=== PATIENT | female | born 1955 | race Caucasian/White ===

== ENCOUNTER 2016-09-19 16:05 | Emergency (ER) | payer OTHER ==
[~2016-09-19] VITALS: Ht 154.9 cm; Wt 90.7 kg
[~2016-09-19 16:05] MED LIST: Aspirin PO; FAMO40TA57 PO; PANT40TA3 PO; PARO30TA45 PO; ST.150CA PO; TRAM-29 PO; TRAM50TA PO; VENTOLIN HFA18 GM IH
[2016-09-19] MEDS ORDERED: PREDNISONE 20 MG TABLET PO ONE (17:15)
[2016-09-19] MEDS ORDERED: IPRATRPIUM/ALBUTEROL 0.5/2.5MG 3 ML NEBU. NEB ONE (17:15)
[2016-09-19 17:55] VITALS: BP 145/70
[2016-09-19] MEDS ORDERED: PROVENTIL HFA6.7 GM IH (18:21)
[2016-09-19] MEDS ORDERED: PRED20TA PO (18:21)
--- NOTE | 2016-09-19 18:22 | PHYS DOC ---
Past Medical History Past Medical History: Anxiety, Asthma, Depression, Gallstones, Other Additional Past Medical Histor: Hypoglycemia, sciatic nerve pain, miscarriage x3 Past Surgical History: Hysterectomy, Tonsillectomy, Other Additional Past Surgical Histo: 3 D&C Alcohol Use: None Drug Use: None Adult General Chief Complaint Chief Complaint: ASTHMA HPI HPI 61-year-old female with history of asthma presents with cough and wheezing all day today. She states the wheezing came out of nowhere. She did take a couple of puffs off her inhaler at home which seemed to help. She denies any fever chills sweats or body ache. She's not had any runny nose or nasal congestion. She denies any hemoptysis.] Review of Systems Review of Systems Constitutional: Denies fever or chills [] Eyes: Denies change in visual acuity, redness, or eye pain [] HENT: Denies nasal congestion or sore throat [] Respiratory: Per history of present illness [] Cardiovascular: No additional information not addressed in HPI [] GI: Denies abdominal pain, nausea, vomiting, bloody stools or diarrhea [] : Denies dysuria or hematuria [] Musculoskeletal: Denies back pain or joint pain [] Integument: Denies rash or skin lesions [] Neurologic: Denies headache, focal weakness or sensory changes [] Endocrine: Denies polyuria or polydipsia [] Current Medications Current Medications Current Medications Medications (Trade) Dose Ordered Sig/Russel Start Time Stop Time Status Last Admin Dose Admin Albuterol/ Ipratropium (Duoneb) 3 ml 1X ONCE 09/19/16 17:15 09/19/16 17:16 DC 09/19/16 17:39 3 ML Prednisone (Prednisone) 40 mg 1X ONCE 09/19/16 17:15 09/19/16 17:16 DC 09/19/16 17:15 40 MG Allergies Allergies Allergies Coded Allergies Type Severity Reaction Last Updated Verified Penicillins Allergy Intermediate Hives 01/26/16 Yes Physical Exam Physical Exam Constitutional: Well developed, well nourished, no acute distress, non-toxic appearance. [] HENT: Normocephalic, atraumatic, bilateral external ears normal, oropharynx moist, no oral exudates, nose normal. [] Eyes: PERRLA, EOMI, conjunctiva normal, no discharge. [] Neck: Normal range of motion, no tenderness, supple, no stridor. [] Cardiovascular:Heart rate regular rhythm, no murmur [] Lungs & Thorax: Mild apical wheezing no rales [] Abdomen: Bowel sounds normal, soft, no tenderness, no masses, no pulsatile masses. [] Skin: Warm, dry, no erythema, no rash. [] Back: No tenderness, no CVA tenderness. [] Extremities: No tenderness, no cyanosis, no clubbing, ROM intact, no edema. [] Neurologic: Alert and oriented X 3, normal motor function, normal sensory function, no focal deficits noted. [] Psychologic: Affect normal, judgement normal, mood normal. [] Current Patient Data Vital Signs Vital Signs Date Time Temp Pulse Resp B/P Pulse Ox O2 Delivery O2 Flow Rate FiO2 09/19/16 17:38 99 Room Air 09/19/16 16:55 84 20 159/77 09/19/16 16:33 97.8 97.8 EKG EKG [EKG: Normal sinus rhythm rate of [address]-T changes] Radiology/Procedures Radiology/Procedures [] Impressions: Chest x-ray: Negative exam as interpreted by me Course & Med Decision Making Course & Med Decision Making Pertinent Labs and Imaging studies reviewed. (See chart for details) [] Dragon Disclaimer Dragon Disclaimer This electronic medical record was generated, in whole or in part, using a voice recognition dictation system. Departure Departure Impression: Primary Impression: Asthma exacerbation Disposition: HOME, SELF-CARE Condition: IMPROVED Referrals: IGNACIO ELIAS MD (PCP) Patient Instructions: Asthma, Adult Additional Instructions: Thank you for allowing us to participate in your care today. Followup with your primary care physician in 3 days if your symptoms do not improve. Return to the emergency department you have any new or concerning findings. This should be evaluated by the primary care physician and any necessary consulting services for continued management within a few days after discharge. Return to emergency room if you have any new or concerning symptoms including but not limited to fever, chills, nausea, vomiting, intractable pain, any new rashes, chest pain, shortness of air, uncontrolled bleeding, difficulty breathing, and/or vision loss. You may have been prescribed medication that can change in your level of thinking and ability to operate machinery. These medications include hydrocodone and Ativan. Also, Benadryl has been known to do this as well. Be sure to check with your pharmacist and ask if the medications you've prescribed can affect your level of consciousness. I recommend not operating heavy machinery or driving while on medication such as these. Scripts Albuterol Sulfate (Proventil Hfa Inhaler)6.7 Gm Hfa.[id number].ad1 Puff IH PRN Q4HRS PRN asthma #1 INHALER NS Prov:TULIO NEVAREZ DO 09/19/16 Prednisone 20 Mg Tablet2 Tab PO DAILY PRN COUGH #14 TAB Prov:TULIO NEVAREZ DO 09/19/16 TULIO NEVAREZ DO Sep 19, 2016 18:22
--- NOTE | 2016-09-20 06:11 | EKG ---
[facility] [address] [place] [address] Test Date: 2016-09-19 Test Time: 16:48:18 Pat Name: PIPE BARROS Department: Room: Gender: F Acquisition Advisor: : 1955 Requested By: TULIO NEVAREZ Order Number: [id number] Reading MD: Sherice Mcclure Measurements Intervals [employer] Rate: 78 P: 38 NC: 138 QRS: 3 QRSD: 90 T: 29 QT: 384 QTc: 441 Interpretive Statements SINUS RHYTHM LEFT ATRIAL ABNORMALITY RI6.01 Unconfirmed report Compared to ECG 07/18/2015 13:14:00 No significant changes Electronically Signed On 09-21-2016 21:34:49 CDT by Sherice Mcclure
--- NOTE | 2016-09-20 08:20 | RAD ---
Portable chest, 09/19/2016: History: Shortness of breath Comparison is made to a study from 07/17/2015. The heart size and pulmonary vascularity are normal. No pulmonary infiltrates are seen. There is no evidence of pleural fluid. IMPRESSION: No acute cardiopulmonary abnormality is detected.
== END 2016-09-19 18:35 | disposition home or self-care (01) ==
LOC: ER 16:05
DX: J45.901 Unspecified asthma with (acute) exacerbation (principal); Z88.0 Allergy status to penicillin
CPT/HCPCS: 71010; 93005; 94250; 94640; 99284; J7512; J7620

== ENCOUNTER → 2016-10-02 | Day surgery (SDC) | payer OTHER ==
[~2016-10-02] MED LIST changes: +FENTANYL PF 100 MCG/2 ML VIAL. IV PRN; +HYDROMORPHONE 2 MG/ML VIAL. IV PRN; +IV RINGERS,LACTATED 1000ML 1,000 ML IV SCH; +LIDOCAINE 1% 1 ML SYRINGE. ID PRN; +LORA0.5T PO; +MORPHINE SULFATE 2 MG/ML DISP.SYRIN. IV PRN; +ONDANSETRON PF 4 MG/2 ML VIAL. IV PRN; +PRED20TA PO; +PROCHLORPERAZINE 10 MG/2 ML VIAL. IV PRN; +PROPOFOL 40 ML IV ONE; +PROVENTIL HFA6.7 GM IH
--- NOTE | 2016-10-02 09:30 | PDOC1 ---
HISTORY & PHYSICAL H&P Rossy Fernandez 1955 09/13/2016 01:00 PM 07/09 [employer] [facility] PATIENTS COM[facility] [address] [place] [address]. [phone] Patient: Rossy Fernandez Date of : 1955 Date: 09/13/2016 1:00 PM Visit Type: Consult This 61 year old female presents for Abdominal pain, Diarrhea, Dysphagia and Screening colonoscopy. History of Present Illness: 1. Abdominal pain Severity is mild-moderate. Duration is 1 Week. Location is epigastric, midline. There is no radiation. The patient describes it as aching, burning and sharp. Context: no pattern noted. Denies aggravating factors. Denies relieving factors. Associated symptoms include diarrhea. Pertinent negatives include blood in stool, fever and nausea. 2. Diarrhea Onset: 5 days ago. Severity level is: mild-moderate. Stool frequency: 3 to 4 times a day. The describes it as loose and watery. It occurs constantly. She denies aggravating factors. She denies relieving factors. Associated symptoms include abdominal pain and cramping (abdominal). Pertinent negatives include blood in stool, fever, nausea, vomiting and weight loss. 3. Dysphagia The symptoms occur with solids only which cause choking and gagging with food sticking in the mid chest. The symptoms are felt to be related to meals. There is no history of reflux or stroke. The patient denies nausea, vomiting or weight loss. 4. Screening colonoscopy No prior screening. Denies risk factors. Associated symptoms include abdominal pain and diarrhea. Pertinent negatives include change in bowel habits , change in stool caliber, constipation, decreased appetite, melena, nausea, rectal bleeding, vomiting, weight gain and weight loss. Additional information : No family history of colon cancer, No family history of Crohn's/colitis and No NSAID/ASA use. INTAKE COMMENTS: Intake Comments: Nurse Note: the pt is here today with complaints of diarrhea and abd pain after meals. The pt states that she also has some dysphagia at times. The pt has never had a colonoscopy completed. Denies any blood or dark stools. PROBLEM LIST: Problem Description Onset Date Chronic Notes Bilateral low back pain with sciatica, sciatica laterality unspecified 2014 Anxiety 12/10/2015 Groin pain, left 06/15/2015 Dysuria 06/15/2015 Gastroesophageal reflux disease without esophagitis 07/23/2015 PAST MEDICAL/SURGICAL HISTORY (Detailed) Disease/disorder Onset Date Management Date Comments D&C 1986 Hysterectomy 12/2012 Tonsillectomy 1957 Anxiety Asthma 1974 Peptic ulcer disease Medications (Active): Started Medication Directions Instruction Stopped 08/25/2016 Ativan 0.5 mg tablet take 1 tablet by ORAL route 2 times every day as needed 08/16/2016 PAROXETINE 30MG TAB TAKE 1 TABLET BY MOUTH DAILY 08/16/2016 PROTONIX 40MG TAB TAKE 1 TABLET BY MOUTH DAILY 12/13/2015 simvastatin 20 mg tablet take 1 tablet by oral route every day in the evening 12/19/2013 Ventolin HFA 90 mcg/actuation aerosol inhaler inhale 2 puff by inhalation route every 2 hours Allergies: Ingredient Reaction Medication Name Comment PENICILLINS Hives/Skin Rash REVIEW OF SYSTEMS System Neg/Pos Details Constitutional Negative Chills, fever, malaise, weight gain and weight loss. ENMT Negative Sore throat. Eyes Negative Double vision. Respiratory Negative Dyspnea and wheezing. Cardio Negative Chest pain and irregular heartbeat/palpitations. GI Positive Abdominal cramping, Abdominal pain, Diarrhea, See HPI. GI Negative Blood in stool, change in bowel habits, change in stool caliber, constipation, decreased appetite, melena, nausea, see HPI, rectal bleeding and vomiting. Negative Dysuria and hematuria. Endocrine Negative Cold intolerance and heat intolerance. Psych Negative Anxiety. Integumentary Negative Hives and rash. MS Negative Joint pain. Hermelindo/Lymph Negative Easy bleeding and easy bruising. Allergic/Immuno Negative Food allergies. VITAL SIGNS Time BP mm/Hg Pulse /min Resp /min Temp F Ht ft Ht in Ht cm Wt lb Wt kg BMI kg/ m2 BSA m2 O2 Sat% 12:48 PM 120/80 88 98.0 5.0 9.00 175.26 220.40 99.972 32.55 96 Time Measured by 12:48 PM Radha Mandujano PHYSICAL EXAM: Exam Findings Details Constitutional Normal Well developed. Eyes Normal Conjunctiva - Right: Normal, Left: Normal. Sclera - Right: Normal, Left: Normal. Nasopharynx Normal Lips/teeth/gums - Normal. Neck Exam Normal Inspection - Normal. Thyroid gland - Normal. Respiratory Normal Inspection - Normal. Auscultation - Normal. Cardiovascular Normal Regular rate and rhythm. No murmurs, gallops, or rubs. Vascular Normal Pulses - Carotids: Normal, Femoral: Normal, Dorsalis pedis: Normal. Abdomen Normal Inspection - Normal. Anterior palpation - No guarding. No abdominal tenderness. No hepatic enlargement. No splenic enlargement. No hernia. No Ascites. Skin Normal Inspection - Normal. Extremity Normal No edema. Psychiatric Normal Oriented to time, place, person, and situation. Appropriate mood and effect. The patient was checked out at 1:06 PM by Radha Mandujano. Assessment/Plan # Detail Type Description 1. Assessment Pain of upper abdomen (R10.10). Patient Plan schedule EGD at [facility] Plan Orders Further diagnostic evaluations ordered today include(s) EGD to be performed today. 2. Assessment Functional diarrhea (K59.1). Patient Plan Await colonoscopy. 3. Assessment Encounter for screening colonoscopy (Z12.11). Patient Plan schedule colonoscopy at [facility] Plan Orders Further diagnostic evaluations ordered today include(s) Colonoscopy to be performed today. She is to schedule a follow-up visit with Bryce Deleon MD upon completion of work-up 4. Assessment History of calculus of gallbladder (Z87.19). Patient Plan Await EGD and if negative one may have to consider symptomatic gallbladder stone as the issue for her current abdominal pain. Electronically signed by: Bryce Deleon MD 09/13/2016 01:16 PM Document generated by: Bryce Deleon 09/13/2016 01:16 PM Julian Martin MD, Family Practice; Levi Moreno MD Internal Medicine; Jose Genao MD, Internal Medicine; Golden Deleon MD Internal Medicine; Bryce Deleon MD, Gastroenterology; Ayan Majano MD, Rheumatology, S. Reji Dunn, Physical Medicine/Rehab Arianna Sam APRN -- 10/02/16 Patient seen and examined. No change in H&P. BRYCE DELEON MD Oct 02, 2016 09:30
--- NOTE | 2016-10-02 10:28 | PDOC4 ---
GI OP Report - Dr. Elias Date/Time DATE: 10/02/16 TIME: 10:25 Attending Physician Armando Elias MD Referring Physician Indications Epigastric abdominal pain, Dysphagia Pre-Op See the Anesthesia note for documentation of the administered medications Procedures Upper GI endoscopy Findings - Normal esophagus. Dilated. - Normal stomach. - Normal examined duodenum. - No specimens collected. Plan - Discharge patient to home. - Patient has a contact number available for emergencies. The signs and symptoms of potential delayed complications were discussed with the patient. Return to normal activities tomorrow. Written discharge instructions were provided to the patient. - Resume regular diet. - Continue present medications. - Return to my office as needed. ARMANDO ELIAS MD Oct 02, 2016 10:27
--- NOTE | 2016-10-02 10:34 | PDOC4 ---
GI OP Report - Dr. Elias Date/Time DATE: 10/02/16 TIME: 10:27 Attending Physician Armando Elias MD Referring Physician Indications Chronic diarrhea Pre-Op See the Anesthesia note for documentation of the administered medications Procedures Colonoscopy Findings - The entire examined colon is normal. - No specimens collected. Plan - Discharge patient to home. - Patient has a contact number available for emergencies. The signs and symptoms of potential delayed complications were discussed with the patient. Return to normal activities tomorrow. Written discharge instructions were provided to the patient. - Resume regular diet. - Continue present medications. - Repeat colonoscopy in 10 years for surveillance. - Return to my office as needed. ARMANDO ELIAS MD Oct 02, 2016 10:34
[2016-10-02 10:50] VITALS: BP 141/80
== END | disposition home or self-care (01) ==
LOC: ENDOS 08:12
PROVIDERS: ATTEND Internal Medicine Gastroenterology
DX: K52.9 Noninfective gastroenteritis and colitis, unspecified (principal); R13.10 Dysphagia, unspecified; J45.909 Unspecified asthma, uncomplicated; E66.9 Obesity, unspecified; K21.9 Gastro-esophageal reflux disease without esophagitis; E16.2 Hypoglycemia, unspecified; F41.9 Anxiety disorder, unspecified; F32.9 Major depressive disorder, single episode, unspecified; Z90.710 Acquired absence of both cervix and uterus; Z98.51 Tubal ligation status
CPT/HCPCS: 43248; 45378; J2704

== ENCOUNTER 2017-01-13 11:20 | Emergency (ER) | payer OTHER ==
[~2017-01-13] VITALS: Ht 175.3 cm; Wt 99.3 kg
[~2017-01-13 11:20] MED LIST changes: -FENTANYL PF 100 MCG/2 ML VIAL. IV PRN; -HYDROMORPHONE 2 MG/ML VIAL. IV PRN; -IV RINGERS,LACTATED 1000ML 1,000 ML IV SCH; -LIDOCAINE 1% 1 ML SYRINGE. ID PRN; -MORPHINE SULFATE 2 MG/ML DISP.SYRIN. IV PRN; -ONDANSETRON PF 4 MG/2 ML VIAL. IV PRN; -PROCHLORPERAZINE 10 MG/2 ML VIAL. IV PRN; -PROPOFOL 40 ML IV ONE; -TRAM-29 PO; +TRAM-48 PO
[2017-01-13 11:40] VITALS: BP 149/80
--- NOTE | 2017-01-13 11:55 | PHYS DOC ---
Past Medical History Past Medical History: Anxiety, Asthma, Depression, Gallstones, Other Additional Past Medical Histor: Hypoglycemia, sciatic nerve pain, miscarriage x3 Past Surgical History: Hysterectomy, Tonsillectomy, Other Additional Past Surgical Histo: 3 D&C Alcohol Use: None Drug Use: None Adult General Chief Complaint Chief Complaint: SKIN RASH/ABSCESS [facility] HPI Patient is a 61 year old female presents emergency Department with rashes on bilateral upper extremities and bilateral lower extremities. Patient states she' s had these for the last 2-3 days. Patient also states that he has been itching and very irritated. She is under the impression she hasn't cannot take antihistamines due to being on Paxil. Patient states she has done the neck are baths baking soda baths with no relief. She denies any fever, chills or any nausea vomiting. Review of Systems Review of Systems Constitutional: Denies fever or chills [] Eyes: Denies change in visual acuity, redness, or eye pain [] HENT: Denies nasal congestion or sore throat [] Respiratory: Denies cough or shortness of breath [] Cardiovascular: No additional information not addressed in HPI [] GI: Denies abdominal pain, nausea, vomiting, bloody stools or diarrhea [] : Denies dysuria or hematuria [] Musculoskeletal: Denies back pain or joint pain [] Integument: rash denies skin lesions [] Neurologic: Denies headache, focal weakness or sensory changes [] Endocrine: Denies polyuria or polydipsia [] Current Medications Current Medications Current Medications Medications (Trade) Dose Ordered Sig/[facility] Start Time Stop Time Status Last Admin Dose Admin Methylprednisolone Sodium Succinate (SOLU-Medrol 125MG VIAL) 125 mg 1X ONCE 01/13/17 12:00 01/13/17 12:01 Allergies Allergies Allergies Coded Allergies Type Severity Reaction Last Updated Verified Penicillins Allergy Intermediate Hives 10/02/16 Yes Physical Exam Physical Exam Constitutional: Well developed, well nourished, no acute distress, non-toxic appearance. [] HENT: Normocephalic, atraumatic, bilateral external ears normal, oropharynx moist, no oral exudates, nose normal. [] Eyes: PERRLA, EOMI, conjunctiva normal, no discharge. [] Neck: Normal range of motion, no tenderness, supple, no stridor. [] Cardiovascular:Heart rate regular rhythm, no murmur [] Lungs & Thorax: Bilateral breath sounds clear to auscultation [] Skin: Warm, dry, no erythema, patient with red raised rash noted on bilateral arms no weeping and no discoloration pustulous noted. The appear to be macular type rash. Patient with rash on bilateral lower legs that appear to be red as well with some scabbed over areas. Back: No tenderness Extremities: No tenderness, no cyanosis, no clubbing, ROM intact, no edema. [] Neurologic: Alert and oriented X 3, normal motor function, normal sensory function, no focal deficits noted. [] Psychologic: Affect normal, judgement normal, mood normal. [] EKG EKG [] Radiology/Procedures Radiology/Procedures [] Course & Med Decision Making Course & Med Decision Making Pertinent Labs and Imaging studies reviewed. (See chart for details) Patient will be provided with a Solu-Medrol injection here in the emergency department. Recommended Benadryl at home to help with the itching and irritation when patient states that she is unable to take the Benadryl due to being on Paxil as well as having a 6-year-old grandchild at home. Patient was instructed that Paxil does not interact with Benadryl. Recommended that she take the Benadryl at night to help with itching and irritation. Also spoke with patient in regards to keeping the area clean dry and cool the cooler she keeps the areas the last irritated though be. Patient was encouraged to use cool packs on the areas as she states that did not have an air conditioner. Patient will be provided with a prescription for prednisone in which she can start tomorrow. She'll be provided with treatment: Cream and was recommended to take Benadryl at nighttime to help with the itching and irritation. She may also use Aveeno baths to help soothe the skin. Patient was provided with signs and symptoms to return back to the emergency department. Patient agrees with discharge instructions treatment regimens and follow-up recommendations. [] Dragon Disclaimer Dragon Disclaimer This electronic medical record was generated, in whole or in part, using a voice recognition dictation system. Departure Departure Impression: Primary Impression: Contact dermatitis Disposition: HOME, SELF-CARE Condition: STABLE Referrals: IGNACIO ELIAS MD (PCP) Patient Instructions: Contact Dermatitis, [id number] Additional Instructions: Cool packs on the areas also help prevent itching and irritation. You may also use Aveeno baths to help soothe the skin. As needed for itching and irritation however this medication will cause drowsiness do not take any be alert and oriented. Medication as prescribed. Follow-up with her primary care physician in next 3-5 days. Return to emergency department for signs and symptoms of become worse. Scripts Triamcinolone Acetonide (TRIAMCINOLONE ACETONIDE 0.1% OINT) 15 Gm Oint...g. 1 RACHEL TP BID for WOUND CARE, #1 TUBE MIX WITH EUCERIN DIRECTED BY PHYSICIAN Prov: MADELINE CONKLIN APRN 01/13/17 Prednisone (PREDNISONE) 20 Mg Tablet 40 MG PO DAILY for 7 Days, #14 TAB Prov: MADELINE CONKLIN APRN 01/13/17 MADELINE CONKLIN APRN Jan 13, 2017 11:55
[2017-01-13] MEDS ORDERED: TRIA15OI TP (11:56)
[2017-01-13] MEDS ORDERED: PRED20TA PO (11:56)
[2017-01-13] MEDS ORDERED: methylPREDNISolone SOD SUCC PF 125 MG/2 ML VIAL. IM ONE (12:00)
== END 2017-01-13 12:11 | disposition home or self-care (01) ==
LOC: ER 11:20
DX: L25.9 Unspecified contact dermatitis, unspecified cause (principal); J45.909 Unspecified asthma, uncomplicated; F41.9 Anxiety disorder, unspecified; F32.9 Major depressive disorder, single episode, unspecified; Z88.0 Allergy status to penicillin
CPT/HCPCS: 96372; 99283; J2930

== ENCOUNTER 2017-02-09 12:12 | Emergency (ER) | payer OTHER ==
[~2017-02-09 12:12] MED LIST changes: +TRIA15OI TP
[2017-02-09 12:20] VITALS: BP 158/95
--- NOTE | 2017-02-09 12:37 | PHYS DOC ---
Past Medical History Past Medical History: Anxiety, Asthma, Depression, Gallstones, Other Additional Past Medical Histor: Hypoglycemia, sciatic nerve pain, miscarriage x3 Past Surgical History: Hysterectomy, Tonsillectomy, Other Additional Past Surgical Histo: 3 D&C Alcohol Use: Occasionally Drug Use: None Adult General Chief Complaint Chief Complaint: LACERATION/AVULSION HPI HPI Patient is a 61 year old female with history of depression, anxiety, who presents today with a right middle finger laceration she is right handed. Patient states he reached underneath a lawnmower without realizing it was running. Patient states one of the blades cut her. Review of Systems Review of Systems Constitutional: Denies fever or chills [] Eyes: Denies change in visual acuity, redness, or eye pain [] HENT: Denies nasal congestion or sore throat [] Respiratory: Denies cough or shortness of breath [] Cardiovascular: No additional information not addressed in HPI [] GI: Denies abdominal pain, nausea, vomiting, bloody stools or diarrhea [] : Denies dysuria or hematuria [] Musculoskeletal: Denies back pain or joint pain [] Integument: Right middle finger laceration Neurologic: Denies headache, focal weakness or sensory changes [] Endocrine: Denies polyuria or polydipsia [] Current Medications Current Medications Current Medications Medications (Trade) Dose Ordered Sig/Russel Start Time Stop Time Status Last Admin Dose Admin Acetaminophen/ Hydrocodone Bitart (Lortab 5/325) 1 tab 1X ONCE 02/09/17 12:45 02/09/17 12:46 DC 02/09/17 12:40 1 TAB Bupivacaine HCl (Marcaine 0.5%) 50 ml 1X ONCE 02/09/17 12:45 02/09/17 12:46 DC 02/09/17 12:41 50 ML Diphtheria/ Tetanus/Acell Pertussis (Boostrix) 0.5 ml ONCE ONCE 02/09/17 13:00 02/09/17 13:03 DC Lidocaine/Sodium Bicarbonate (Buffered Lidocaine 1%) 20 ml 1X ONCE 02/09/17 12:45 02/09/17 12:59 DC 02/09/17 12:41 20 ML Allergies Allergies Allergies Coded Allergies Type Severity Reaction Last Updated Verified Penicillins Allergy Intermediate Hives 10/02/16 Yes Physical Exam Physical Exam Constitutional: Well developed, well nourished, no acute distress, non-toxic appearance. [] HENT: Normocephalic, atraumatic, bilateral external ears normal, oropharynx moist, no oral exudates, nose normal. [] Eyes: PERRLA, EOMI, conjunctiva normal, no discharge. [] Neck: Normal range of motion, no tenderness, supple, no stridor. [] Cardiovascular:Heart rate regular rhythm, no murmur [] Lungs & Thorax: Bilateral breath sounds clear to auscultation [] Abdomen: Bowel sounds normal, soft, no tenderness, no masses, no pulsatile masses. [] Skin: Tip of the right middle finger has a vertical laceration approximately 2 cm long in vertical orientation. There is no obvious tendon involvement. Full range of motion to the right middle finger including flexion and extension of the MIP, PIP, and DIP joints. +2 right radial pulse. Cap refill less than 2 seconds the right upper extremity. Adequate sensation intact to the finger. Back: No tenderness, no CVA tenderness. [] Extremities: No tenderness, no cyanosis, no clubbing, ROM intact, no edema. [] Neurologic: Alert and oriented X 3, normal motor function, normal sensory function, no focal deficits noted. [] Psychologic: Affect normal, judgement normal, mood normal. [] Current Patient Data Vital Signs Vital Signs Date Time Temp Pulse Resp B/P (MAP) Pulse Ox O2 Delivery O2 Flow Rate FiO2 02/09/17 12:20 98.7 89 18 98 Room Air 98.7 EKG EKG [] Radiology/Procedures Radiology/Procedures []PROCEDURE: FINGER(S) RIGHT Right finger radiograph 3 views 02/09/2017 Comparison: Right hand radiograph 05/31/2008 Clinical indication: Laceration of the third digit. Findings: There is diffuse soft tissue swelling at the distal third digit. No acute fracture or traumatic malalignment with attention to the third digit. Impression: Mild soft tissue swelling of the third digit with no acute osseous abnormality. DICTATED and SIGNED BY: MARY BLOCK MD DATE: 02/09/17 1243 CC: SRIDEVI ADKINS APRN; IGNACIO ELIAS MD ~ Indication: Right middle finger laceration Procedure: The patient was placed in the appropriate position and anesthesia around the laceration was 0.5% of bupivacaine, the area was explored for foreign objects, none was found, the area was cleaned with 200 ML of normal saline and Betadine. The laceration was closed with 4 interrupted sutures using 5. 0 Ethilon. The wound was covered with nonstick dressing. Total repaired wound length: Approximately 2 cm long Other Items: none The patient tolerated the procedure well Complications:none Course & Med Decision Making Course & Med Decision Making Pertinent Labs and Imaging studies reviewed. (See chart for details) Patient has right middle finger laceration after reaching underneath a lawnmower. Tetanus was updated. Laceration was closed by me as noted in procedures. Provided wound care instructions as well as return precautions. Dragon Disclaimer Dragon Disclaimer This electronic medical record was generated, in whole or in part, using a voice recognition dictation system. Departure Departure Impression: Primary Impression: Laceration of right index finger Disposition: 01 HOME, SELF-CARE Condition: STABLE Referrals: IGNACIO ELIAS MD (PCP) Follow-up with your primary care doctor or the emergency room in 7-10 days for stitches removal Patient Instructions: Laceration Care, Adult, Niey-go-[id number] Additional Instructions: You were seen for right middle finger laceration. Keep the finger clean and dry. Apply Neosporin to the area twice a day. Come back to the ED in 7-10 days for stitches removal. Monitor the area for signs and symptoms of infection including but not limited to increased redness warmth, yellow/odor drainage from the area and return to the ED if they occur. Scripts Acetaminophen With Codeine (TYLENOL WITH CODEINE #3 TABLET) 1 Each Tablet 1 TAB PO PRN Q6HRS Y for PAIN, #20 TAB Prov: SRIDEVI ADKINS APRN 02/09/17 Problem Qualifiers Primary Impression: Laceration of right index finger Encounter type: initial encounter Damage to nail status: without damage Foreign body presence: without foreign body Qualified Codes: S61.210A - Laceration without foreign body of right index finger without damage to nail, initial encounter SRIDEVI ADKINS APRN Feb 09, 2017 12:36
[2017-02-09] MEDS ORDERED: LIDOCAINE 1% / SOD BICARB 8.4% 20 ML VIAL. IJ ONE (12:45)
[2017-02-09] MEDS ORDERED: HYDROcodone/APAP 5/325MG 1 TAB TABLET PO ONE (12:45)
[2017-02-09] MEDS ORDERED: BUPIVACAINE 0.5% 50 ML VIAL. IJ ONE (12:45)
--- NOTE | 2017-02-09 12:48 | RAD ---
Right finger radiograph 3 views 02/09/2017 Comparison: Right hand radiograph 05/31/2008 Clinical indication: Laceration of the third digit. Findings: There is diffuse soft tissue swelling at the distal third digit. No acute fracture or traumatic malalignment with attention to the third digit. Impression: Mild soft tissue swelling of the third digit with no acute osseous abnormality.
[2017-02-09] MEDS ORDERED: DIPHTH,PERTUSS(ACELL),TET TOX 0.5 ML DISP.SYRIN. VAX IM ONE (13:00)
[2017-02-09] MEDS ORDERED: ACET-704 PO (13:27)
== END 2017-02-09 13:30 | disposition home or self-care (01) ==
LOC: ER 12:12
DX: S61.212A Laceration without foreign body of right middle finger without damage to nail, initial encounter (principal); F41.9 Anxiety disorder, unspecified; J45.909 Unspecified asthma, uncomplicated; F32.9 Major depressive disorder, single episode, unspecified; Z90.710 Acquired absence of both cervix and uterus; Z88.0 Allergy status to penicillin; W26.8XXA Contact with other sharp object(s), not elsewhere classified, initial encounter; Y93.89 Activity, other specified; Y92.89 Other specified places as the place of occurrence of the external cause; Y99.8 Other external cause status
CPT/HCPCS: 12001; 73140; 90471; 90715; 99284; J3490

== ENCOUNTER 2017-05-18 22:16 | Emergency (ER) | payer OTHER ==
[~2017-05-18] VITALS: Ht 175.3 cm; Wt 99.8 kg
[~2017-05-18 22:16] MED LIST changes: +ACET-704 PO
[2017-05-18 23:19] LABS: BASO % 0 % (0-3); EOS % 3 % (0-3); HEMOGLOBIN 13.6 g/dL (12.0-15.5); LYMPH # 1.2 x10^3/uL (1.0-4.8); LYMPH % 18 % (24-48); MEAN CORPUSCULAR HEMOGLOBIN 29 pg (25-35); MEAN CORPUSCULAR HGB CONC 33 g/dL (31-37); MEAN CORPUSCULAR VOLUME 88 fL (79-100); MONO % 7 % (0-9); NEUT % 71 % (31-73); PLATELET COUNT 177 x10^3/uL (140-400); RED BLOOD COUNT 4.66 x10^6/uL (3.50-5.40); RED CELL DISTRIBUTION WIDTH 13.9 % (11.5-14.5); WHITE BLOOD COUNT 6.4 x10^3/uL (4.0-11.0)
--- NOTE | 2017-05-18 23:35 | PHYS DOC ---
Past Medical History Past Medical History: Anxiety, Asthma, Depression, Gallstones, Other Additional Past Medical Histor: Hypoglycemia, sciatic nerve pain, miscarriage x3 Past Surgical History: Hysterectomy, Tonsillectomy, Other Additional Past Surgical Histo: 3 D&C Alcohol Use: Rarely Drug Use: None Adult General Chief Complaint Chief Complaint: CHEST PAIN HPI HPI Patient is a 62 year old female who presents to the ER today secondary to chest pain is sharp in nature on the midsternal to right side of her chest. Patient reports that she's had a history significant for angina in the past has had an extensive workup in the hospital including multiple admissions in a normal stress test less than one year ago. Patient reports that the pain she is having today seem somewhat similar to the prior pain that she had when she was admitted last time for her anginal workup. Patient reports that she had some associated shortness of breath and nausea however she denies any diaphoresis or pain radiating down her arm. Patient also reports that she was diagnosed with gallstones in the past and that her doctor told her that if she had any further pain attacks that he would want her to get her gallbladder taken out. Patient reports the pain started earlier this evening. No change with exertion or rest. No change with meals or position. Patient denies any history of hypertension or diabetes. Patient denies any liver kidney or lung problems. Patient has any history of coronary disease. Patient had a total abdominal hysterectomy in the past. Patient does not smoke drink or do any drugs. Patient currently reports that she is completely pain-free and does not have any discomfort at this time. Patient is requesting we discharge her to home at this time because bedbugs has been found on her body and she wants to go home and take care of them. Review of systems: Constitutional: Denies fever or chills Eyes: Denies change in visual acuity, redness, or eye pain All other systems were reviewed and found to be within normal limits, except as documented in this note. Physical exam: Constitutional: Well developed, well nourished, no acute distress, non-toxic appearance. HENT: Normocephalic, atraumatic, bilateral external ears normal, Eyes: EOMI, conjunctiva normal, no discharge. Neck: Normal range of motion, no tenderness, supple, no stridor. Cardiovascular:Heart rate regular rhythm Lungs & Thorax: Bilateral breath sounds clear to auscultation Abdomen: Bowel sounds normal, soft, no tenderness, no masses, no pulsatile masses. Skin: Warm, dry, no erythema, no rash. Back: No tenderness, no CVA tenderness. Extremities: No tenderness, no cyanosis, no clubbing, ROM intact, no edema. Neurologic: Alert and oriented X 3, normal motor function, normal sensory function, no focal deficits noted. Psychologic: Affect normal, judgement normal, mood normal. Assessment and plan EKG reveals normal sinus rhythm at a heart rate of [address]-T wave abnormalities. No evidence of ST elevation AL. As interpreted by ER physician. Chest x-ray reveals a normal heart size without infiltrates or effusions. As interpreted by ER physician. This is a 62-year-old female who presents to the ER today with atypical chest pain for cardiac ischemia. Patient is very low risk for cardiac ischemia given her history had a recent stress test. Patient's presentation sounds more consistent with possible biliary colic. Patient's ER workup is been unremarkable. Patient's chest x-ray, labs, EKG revealed identifying source to her pain however there are not consistent with an obstructive biliary pattern or anginal pattern. Patient is currently pain-free at this time. It was noted that the patient did have bedbugs on her which the patient reports she has never identified in her home. Patient is concerned is requesting that I discharge her to home because she wants to make sure that these bedbugs are not from her home. Allergies Allergies Allergies Coded Allergies Type Severity Reaction Last Updated Verified Penicillins Allergy Intermediate Hives 10/02/16 Yes Current Patient Data Vital Signs Vital Signs Date Time Temp Pulse Resp B/P (MAP) Pulse Ox O2 Delivery O2 Flow Rate FiO2 05/18/17 22:30 97.9 89 24 156/81 (106) 96 Room Air 97.9 Lab Values Laboratory Tests Test 05/18/17 23:10 White Blood Count 6.4 x10^3/uL (4.0-11.0) Red Blood Count 4.66 x10^6/uL (3.50-5.40) Hemoglobin 13.6 g/dL (12.0-15.5) Hematocrit 41.0 % (36.0-47.0) Mean Corpuscular Volume 88 fL (79-100) Mean Corpuscular Hemoglobin 29 pg (25-35) Mean Corpuscular Hemoglobin Concent 33 g/dL (31-37) Red Cell Distribution Width 13.9 % (11.5-14.5) Platelet Count 177 x10^3/uL (140-400) Neutrophils (%) (Auto) 71 % (31-73) Lymphocytes (%) (Auto) 18 % (24-48) L Monocytes (%) (Auto) 7 % (0-9) Eosinophils (%) (Auto) 3 % (0-3) Basophils (%) (Auto) 0 % (0-3) Neutrophils # (Auto) 4.5 x10^3uL (1.8-7.7) Lymphocytes # (Auto) 1.2 x10^3/uL (1.0-4.8) Monocytes # (Auto) 0.4 x10^3/uL (0.0-1.1) Eosinophils # (Auto) 0.2 x10^3/uL (0.0-0.7) Basophils # (Auto) 0.0 x10^3/uL (0.0-0.2) Laboratory Tests 05/18/17 23:10 EKG EKG [] Radiology/Procedures Radiology/Procedures [] Course & Med Decision Making Course & Med Decision Making Pertinent Labs and Imaging studies reviewed. (See chart for details) [] Dragon Disclaimer Dragon Disclaimer This electronic medical record was generated, in whole or in part, using a voice recognition dictation system. Departure Departure Impression: Primary Impression: Chest pain Additional Impressions: Anxiety Infestation by bed bug Disposition: 01 HOME, SELF-CARE Condition: IMPROVED Referrals: IGNACIO ELIAS MD (PCP) Patient Instructions: Anxiety and Panic Attacks, Bedbugs, Chest Pain ( Nonspecific) Problem Qualifiers ROX WEST MD May 18, 2017 23:35
[2017-05-18 23:40] LABS: CALCIUM 9.1 mg/dL (8.5-10.1); CREATININE 0.8 mg/dL (0.6-1.0); GFR 72.7; POTASSIUM 3.9 mmol/L (3.5-5.1)
[2017-05-18 23:45] LABS: ALBUMIN 3.7 g/dL (3.4-5.0); ALBUMIN/GLOBULIN RATIO 0.9 (1.0-1.7); TOTAL BILIRUBIN 0.3 mg/dL (0.2-1.0); TOTAL PROTEIN 7.8 g/dL (6.4-8.2)
[2017-05-18 23:56] VITALS: BP 147/75
--- NOTE | 2017-05-19 07:53 | EKG ---
[facility] [address] [place] [address] Test Date: 2017-05-18 Test Time: 22:23:22 Pat Name: PIPE BARROS Department: Room: Gender: F Sharepoint Administrator: : 1955 Requested By: ROX WEST Order Number: [id number] Reading MD: Francisco Javier Turner MD Measurements Intervals Moore Rate: 86 P: 44 MI: 136 QRS: 17 QRSD: 98 T: 43 QT: 404 QTc: 486 Interpretive Statements SINUS RHYTHM LEFT ATRIAL ABNORMALITY NON SPECIFIC T ABNORMALITY PROLONGED QT Electronically Signed On 05-21-2017 11:00:19 COMMERCIAL ANALYST by Francisco Javier Turner MD
--- NOTE | 2017-05-19 08:04 | RAD ---
EXAM: Chest, single view. HISTORY: Chest pain. COMPARISON: 09/19/2016. FINDINGS: A frontal view of the chest is obtained. There is no infiltrate, effusion or pneumothorax. The heart is normal in size. IMPRESSION: No acute pulmonary finding.
== END 2017-05-19 00:22 | disposition home or self-care (01) ==
LOC: ER 22:16
DX: R07.89 Other chest pain (principal); F41.9 Anxiety disorder, unspecified; B88.8 Other specified infestations; J45.909 Unspecified asthma, uncomplicated; Z88.0 Allergy status to penicillin
CPT/HCPCS: 36415; 71010; 80053; 84484; 85025; 93005; 99285-25

== ENCOUNTER 2017-12-03 21:57 | Emergency (ER) | payer BC, OTHER ==
[2017-12-03] MEDS: ACETAMINOPHEN/CODEINE 120/12MG 5 ML SOLUTION. PO (22:54)
[2017-12-03] MEDS: DEXAMETHASONE SOD PHOS 4 MG/ML VIAL PO (22:55)
[2017-12-04 07:28] LABS: NEGATIVE OBC STREP NEG; POSITIVE OBC STREP POS
== END 2017-12-03 23:01 | disposition home or self-care (01) ==
LOC: ER 21:57
DX: J32.9 Chronic sinusitis, unspecified (principal); J45.909 Unspecified asthma, uncomplicated; Z90.710 Acquired absence of both cervix and uterus; Z90.89 Acquired absence of other organs; Z79.891 Long term (current) use of opiate analgesic; Z79.899 Other long term (current) drug therapy; Z88.0 Allergy status to penicillin
CPT/HCPCS: 87070; 87880; 99283; 99284; J1100

== ENCOUNTER 2018-03-20 12:11 | Emergency (ER) | payer BC ==
[~2018-03-20] VITALS: Ht 175.3 cm; Wt 95.3 kg
[~2018-03-20 12:11] MED LIST changes: +ACET5SOL PO; +DOXY100C2 PO
--- NOTE | 2018-03-20 13:05 | EKG ---
[facility] [address] [place] [address] Test Date: 2018-03-20 Test Time: 12:46:04 Pat Name: PIPE BARROS Department: Room: Gender: F Red Cap: [place] : 1955 Requested By: TULIO NEVAREZ Order Number: [id number] Reading MD: Francisco Javier Turner MD Measurements Intervals [place] Rate: 88 P: 34 AK: 136 QRS: 1 QRSD: 90 T: 41 QT: 368 QTc: 449 Interpretive Statements SINUS RHYTHM Electronically Signed On 03-21-2018 13:48:19 CDT by Francisco Javier Turner MD
[2018-03-20 13:14] LABS: BILIRUBIN,URINE NEGATIVE (NEG); CLARITY,URINE TURBID; COLOR,URINE YELLOW; NITRITE,URINE NEGATIVE (NEG); PROTEIN,URINE NEGATIVE (NEG-TRACE)
[2018-03-20] MEDS: IV NORMAL SALINE 1000ML BAG 1,000 ML IV ONE (13:15)
[2018-03-20] MEDS: ONDANSETRON PF 4 MG/2 ML VIAL. IV ONE (13:16)
[2018-03-20 13:17] LABS: SQUAMOUS EPITHELIAL CELL,UR FEW /LPF
[2018-03-20 13:18] LABS: AMORPHOUS SEDIMENT,UR PRESENT /HPF; BACTERIA,URINE 0 /HPF (0-FEW); RBC,URINE 0 /HPF (0-2); WBC,URINE 0 /HPF (0-4)
[2018-03-20] MEDS: fentaNYL PF VIAL 100 MCG/2 ML VIAL IV ONE (13:18)
[2018-03-20 13:19] LABS: BASO % 0 % (0-3); EOS # 0.2 x10^3/uL (0.0-0.7); EOS % 3 % (0-3); HEMATOCRIT 40.4 % (36.0-47.0); HEMOGLOBIN 13.9 g/dL (12.0-15.5); LYMPH # 0.8 x10^3/uL (1.0-4.8); LYMPH % 10 % (24-48); MEAN CORPUSCULAR HEMOGLOBIN 30 pg (25-35); MEAN CORPUSCULAR HGB CONC 34 g/dL (31-37); MEAN CORPUSCULAR VOLUME 87 fL (79-100); MONO # 0.4 x10^3/uL (0.0-1.1); MONO % 5 % (0-9); NEUT # 6.6 x10^3uL (1.8-7.7); NEUT % 82 % (31-73); PLATELET COUNT 162 x10^3/uL (140-400); RED BLOOD COUNT 4.66 x10^6/uL (3.50-5.40); RED CELL DISTRIBUTION WIDTH 13.7 % (11.5-14.5); WHITE BLOOD COUNT 8.1 x10^3/uL (4.0-11.0)
[2018-03-20 13:29] LABS: CALCIUM 9.8 mg/dL (8.5-10.1); CREATININE 0.9 mg/dL (0.6-1.0); GFR 63.4; POTASSIUM 3.9 mmol/L (3.5-5.1)
[2018-03-20 13:34] LABS: ALBUMIN 3.7 g/dL (3.4-5.0); ALBUMIN/GLOBULIN RATIO 0.9 (1.0-1.7); TOTAL BILIRUBIN 0.7 mg/dL (0.2-1.0); TOTAL PROTEIN 7.7 g/dL (6.4-8.2)
--- NOTE | 2018-03-20 14:17 | PHYS DOC ---
Past Medical History Past Medical History: Anxiety, Asthma, Depression, Gallstones, Other Additional Past Medical Histor: Hypoglycemia, sciatic nerve pain, miscarriage x3 Past Surgical History: Hysterectomy, Tonsillectomy, Other Additional Past Surgical Histo: 3 D&C Alcohol Use: Rarely Drug Use: None Adult General Chief Complaint Chief Complaint: ABDOMINAL PAIN HPI HPI 62-year-old female presents with 2 week history of waxing and waning right upper quadrant pain. She states it happens after she eats. Today she woke up with severe abdominal pain and the pain radiated to her back on the right. She had associated nausea. She denies any melena or hematemesis. She's had no fever chills or sweats. She has not noticed or eyes turning yellow. She states that she had an ultrasound a couple years ago and it was determined that she had a 2 cm gallstone but nothing was done. She has not had any interval symptoms until 2 weeks ago.[] Review of Systems Review of Systems Constitutional: Denies fever or chills [] Eyes: Denies change in visual acuity, redness, or eye pain [] HENT: Denies nasal congestion or sore throat [] Respiratory: Denies cough or shortness of breath [] Cardiovascular: No additional information not addressed in HPI [] GI: Per history of present illness[] : Denies dysuria or hematuria [] Musculoskeletal: Denies back pain or joint pain [] Integument: Denies rash or skin lesions [] Neurologic: Denies headache, focal weakness or sensory changes [] Endocrine: Denies polyuria or polydipsia [] All other systems were reviewed and found to be within normal limits, except as documented in this note. Current Medications Current Medications Current Medications Medications (Trade) Dose Ordered Sig/[facility] Start Time Stop Time Status Last Admin Dose Admin Fentanyl Citrate (Fentanyl 2ml Vial) 50 mcg 1X ONCE 03/20/18 13:00 03/20/18 13:05 DC 03/20/18 13:18 50 MCG Ondansetron HCl (Zofran) 4 mg 1X ONCE 03/20/18 13:00 03/20/18 13:05 DC 03/20/18 13:16 4 MG Sodium Chloride 1,000 ml @ 1,000 mls/hr 1X ONCE 03/20/18 13:00 03/20/18 13:59 DC 03/20/18 13:15 1,000 MLS/HR Allergies Allergies Allergies Coded Allergies Type Severity Reaction Last Updated Verified Penicillins Allergy Intermediate Hives 10/02/16 Yes Physical Exam Physical Exam Constitutional: Well developed, well nourished, mild distress, non-toxic appearance. [] HENT: Normocephalic, atraumatic, bilateral external ears normal, oropharynx moist, no oral exudates, nose normal. [] Eyes: PERRLA, EOMI, conjunctiva normal, no discharge. [] Neck: Normal range of motion, no tenderness, supple, no stridor. [] Cardiovascular:Heart rate regular rhythm, no murmur [] Lungs & Thorax: Bilateral breath sounds clear to auscultation [] Abdomen: Right upper quadrant tender to palp positive Esposito's. [] Skin: Warm, dry, no erythema, no rash. [] Back: No tenderness, no CVA tenderness. [] Extremities: No tenderness, no cyanosis, no clubbing, ROM intact, no edema. [] Neurologic: Alert and oriented X 3, normal motor function, normal sensory function, no focal deficits noted. [] Psychologic: Affect normal, judgement normal, mood normal. [] Current Patient Data Vital Signs Vital Signs Date Time Temp Pulse Resp B/P (MAP) Pulse Ox O2 Delivery O2 Flow Rate FiO2 03/20/18 13:18 16 98 Room Air 03/20/18 12:40 98.2 91 172/88 (116) 98.2 Lab Values Laboratory Tests Test 03/20/18 12:33 03/20/18 13:07 Urine Collection Type Void Urine Color Yellow Urine Clarity Turbid Urine pH 8.0 Urine Specific Wilkinson 1.020 Urine Protein Negative mg/dL (NEG-TRACE) Urine Glucose (UA) Negative mg/dL (NEG) Urine Ketones (Stick) Negative mg/dL (NEG) Urine Blood Negative (NEG) Urine Nitrite Negative (NEG) Urine Bilirubin Negative (NEG) Urine Urobilinogen Dipstick 1.0 mg/dL (0.2 mg/dL) Urine Leukocyte Esterase Negative (NEG) Urine RBC 0 /HPF (0-2) Urine WBC 0 /HPF (0-4) Urine Squamous Epithelial Cells Few /LPF Urine Amorphous Sediment Present /HPF Urine Bacteria 0 /HPF (0-FEW) White Blood Count 8.1 x10^3/uL (4.0-11.0) Red Blood Count 4.66 x10^6/uL (3.50-5.40) Hemoglobin 13.9 g/dL (12.0-15.5) Hematocrit 40.4 % (36.0-47.0) Mean Corpuscular Volume 87 fL (79-100) Mean Corpuscular Hemoglobin 30 pg (25-35) Mean Corpuscular Hemoglobin Concent 34 g/dL (31-37) Red Cell Distribution Width 13.7 % (11.5-14.5) Platelet Count 162 x10^3/uL (140-400) Neutrophils (%) (Auto) 82 % (31-73) H Lymphocytes (%) (Auto) 10 % (24-48) L Monocytes (%) (Auto) 5 % (0-9) Eosinophils (%) (Auto) 3 % (0-3) Basophils (%) (Auto) 0 % (0-3) Neutrophils # (Auto) 6.6 x10^3uL (1.8-7.7) Lymphocytes # (Auto) 0.8 x10^3/uL (1.0-4.8) L Monocytes # (Auto) 0.4 x10^3/uL (0.0-1.1) Eosinophils # (Auto) 0.2 x10^3/uL (0.0-0.7) Basophils # (Auto) 0.0 x10^3/uL (0.0-0.2) Sodium Level 141 mmol/L (136-145) Potassium Level 3.9 mmol/L (3.5-5.1) Chloride Level 103 mmol/L (98-107) Carbon Dioxide Level 30 mmol/L (21-32) Anion Gap 8 (6-14) Blood Urea Nitrogen 18 mg/dL (7-20) Creatinine 0.9 mg/dL (0.6-1.0) Estimated GFR (Cockcroft-Gault) 63.4 BUN/Creatinine Ratio 20 (6-20) Glucose Level 130 mg/dL (70-99) H Calcium Level 9.8 mg/dL (8.5-10.1) Total Bilirubin 0.7 mg/dL (0.2-1.0) Aspartate Amino Transferase (AST) 98 U/L (15-37) H Alanine Aminotransferase (ALT) 66 U/L (14-59) H Alkaline Phosphatase 93 U/L (46-116) Troponin I Quantitative < 0.017 ng/mL (0.000-0.055) Total Protein 7.7 g/dL (6.4-8.2) Albumin 3.7 g/dL (3.4-5.0) Albumin/Globulin Ratio 0.9 (1.0-1.7) L Lipase 219 U/L (73-393) Laboratory Tests 03/20/18 13:07 Laboratory Tests 03/20/18 13:07 EKG EKG [] Radiology/Procedures Radiology/Procedures [] Impressions: STATUS: REG ERORD. PHYSICIAN: TULIO NEVAREZ DO REASON: RUQ Pain PROCEDURE: ABDOMEN LTD Exam: Right Upper Quadrant Ultrasound 03/20/2018 12:59 PM Indication: RUQ PAIN Technique: Multiple realtime grayscale sonographic images were obtained over the abdomen. Static images were submitted for interpretation. Comparisons: Prior abdominal ultrasound July 18, 2015. Findings: Complete abdominal ultrasound July 18, 2015. Visualized portions of the pancreas are unremarkable. Visualized portions of the IVC are grossly unremarkable. The liver is partially visualized. Probable hepatic steatosis is seen. Visualized portions of the liver are otherwise grossly unremarkable. No focal hepatic lesions are identified on provided imaging. There appears to be a large shadowing stone is present within the gallbladder. Gallbladder wall demonstrates no definitive thickening. The common bile duct is mildly dilated measuring 6.5 mm in diameter. Portal venous flows in the normal direction.No pericholecystic fluid is identified. Sonographic Esposito sign is negative per technologist notes. Right kidney is normal in appearance measuring 12 cm in length. IMPRESSION: 1.Cholelithiasis without sonographic evidence of acute cholecystitis. 2. Mild prominence of the common bile duct. No intrahepatic biliary dilatation is seen. Consider correlation serum bilirubin levels. Course & Med Decision Making Course & Med Decision Making Pertinent Labs and Imaging studies reviewed. (See chart for details) [ED course: Evaluation reveals a 60-year-old female with right upper quadrant abdominal pain. Her gallbladder ultrasound does show evidence of gallstones. Her laboratory studies are unrevealing. I feel she is safe for follow-up as an outpatient. Her IV fluids and pain medication did help alleviate her symptoms today.] Dragon Disclaimer Dragon Disclaimer This electronic medical record was generated, in whole or in part, using a voice recognition dictation system. Departure Departure Impression: Primary Impression: Abdominal pain Additional Impressions: Biliary colic Cholelithiasis Disposition: 01 HOME, SELF-CARE Condition: STABLE Referrals: IGNACIO ELIAS MD (PCP) NUBIA EDWARDS MD Call Dr. Hughes's office tomorrow to schedule outpatient follow-up for gallbladder removal Patient Instructions: Biliary Colic, Cholelithiasis Additional Instructions: Please call Dr. Hughes's office tomorrow to schedule follow-up Scripts Ondansetron (ONDANSETRON ODT) 4 Mg Tab.rapdis 1 TAB PO PRN Q6-8HRS for VOMITING, #16 TAB Prov: TULIO NEVAREZ DO 03/20/18 Hydrocodone/Apap 5-325 (NORCO 5-325 TABLET) 1 Each Tablet 1 TAB PO PRN Q6HRS PRN for PAIN, #20 TAB 0 Refills Prov: TULIO NEVAREZ DO 03/20/18 Problem Qualifiers Primary Impression: Abdominal pain Abdominal location: right upper quadrant Qualified Codes: R10.11 - Right upper quadrant pain Additional Impressions: Cholelithiasis Cholelithiasis location: gallbladder Cholecystitis presence: without cholecystitis Biliary obstruction: without biliary obstruction Qualified Codes: K80.20 - Calculus of gallbladder without cholecystitis without obstruction TULIO NEVAREZ DO Mar 20, 2018 14:17
--- NOTE | 2018-03-20 14:42 | RAD ---
Exam: Right Upper Quadrant Ultrasound 03/20/2018 12:59 PM Indication: RUQ PAIN Technique: Multiple realtime grayscale sonographic images were obtained over the abdomen. Static images were submitted for interpretation. Comparisons: Prior abdominal ultrasound July 18, 2015. Findings: Complete abdominal ultrasound July 18, 2015. Visualized portions of the pancreas are unremarkable. Visualized portions of the IVC are grossly unremarkable. The liver is partially visualized. Probable hepatic steatosis is seen. Visualized portions of the liver are otherwise grossly unremarkable. No focal hepatic lesions are identified on provided imaging. There appears to be a large shadowing stone is present within the gallbladder. Gallbladder wall demonstrates no definitive thickening. The common bile duct is mildly dilated measuring 6.5 mm in diameter. Portal venous flows in the normal direction.No pericholecystic fluid is identified. Sonographic Esposito sign is negative per technologist notes. Right kidney is normal in appearance measuring 12 cm in length. IMPRESSION: 1.Cholelithiasis without sonographic evidence of acute cholecystitis. 2. Mild prominence of the common bile duct. No intrahepatic biliary dilatation is seen. Consider correlation serum bilirubin levels. Electronically signed by: Glynn Patterson MD (03/20/2018 2:38 PM) [facility]
[2018-03-20 15:00] VITALS: BP 136/65
[2018-03-20] MEDS ORDERED: HYDR-971 PO (15:04)
[2018-03-20] MEDS ORDERED: ONDA4TAB12 PO (15:04)
== END 2018-03-20 15:31 | disposition home or self-care (01) ==
LOC: ER 12:11
DX: K80.70 Calculus of gallbladder and bile duct without cholecystitis without obstruction (principal); F41.9 Anxiety disorder, unspecified; J45.909 Unspecified asthma, uncomplicated; F32.9 Major depressive disorder, single episode, unspecified; Z90.710 Acquired absence of both cervix and uterus; Z90.89 Acquired absence of other organs; Z88.0 Allergy status to penicillin
CPT/HCPCS: 36415; 76705; 80053; 81001; 83690; 84484; 85025; 93005; 96374; 96375; 99285; J2405; J3010; J7030

== ENCOUNTER 2018-04-08 09:16 | Observation (INO) | payer BC ==
[2018-04-08] VITALS (7 sets, daily range): BP systolic 131–161; BP diastolic 73–93
[~2018-04-08] VITALS: Ht 170.2 cm; Wt 95.3 kg
[~2018-04-08 09:16] MED LIST changes: +ACET500T33 PO; +HYDR-971 PO; +HYDROmorphone 2 MG/ML VIAL IV PRN; +IV RINGERS,LACTATED 1000ML 1,000 ML IV SCH; +LIDOCAINE 1% PF 2 ML VIAL. ID PRN; +MORPHINE SULFATE 2 MG/ML VIAL. IV PRN; +ONDA4TAB12 PO; +ONDANSETRON PF 4 MG/2 ML VIAL. IV PRN; +PARO30TA3 PO; +PROCHLORPERAZINE 10 MG/2 ML VIAL. IV PRN; +SIMV20TA3 PO; +TIZA4TAB PO; +fentaNYL PF VIAL 100 MCG/2 ML VIAL IV PRN
[2018-04-08] MEDS ORDERED: SCOPOLAMINE 1.5MG PATCH. TD ONE ×2 (09:43→10:30)
[2018-04-08] MEDS ORDERED: SCOPOLAMINE 1.5MG PATCH. TD SCH (09:44)
[2018-04-08] MEDS ORDERED: PROPOFOL 20 ML IV ONE (09:56)
[2018-04-08] MEDS ORDERED: ROCURONIUM 50 MG/5 ML VIAL. ONE (09:56)
[2018-04-08] MEDS ORDERED: FAMOTIDINE 20 MG/2 ML VIAL ONE (09:56)
[2018-04-08] MEDS ORDERED: MIDAZOLAM HCL/PF 2 MG/2 ML VIAL. ONE (09:56)
[2018-04-08] MEDS ORDERED: fentaNYL PF VIAL 100 MCG/2 ML VIAL ONE ×2 (09:56→14:09)
[2018-04-08] MEDS ORDERED: ONDANSETRON PF 4 MG/2 ML VIAL. ONE (09:56)
[2018-04-08] MEDS ORDERED: DEXAMETHASONE SOD PHOS 20 MG/5 ML VIAL. ONE (09:56)
[2018-04-08] MEDS ORDERED: SURGICEL HEMOSTAT 4X8 EACH. ONE ×2 (10:50→10:51)
[2018-04-08] MEDS ORDERED: BUPIVAC MPF-EPI 0.5%-1:200000 30 ML VIAL. ONE (10:51)
[2018-04-08] MEDS ORDERED: IOHEXOL 300 MG/ML 100ML VIAL. ONE (10:51)
[2018-04-08] MEDS ORDERED: GLYCOPYRROLATE 1 MG/5 ML VIAL. ONE (12:34)
[2018-04-08] MEDS ORDERED: ePHEDrine PF IN SALINE 50 MG/5 ML DISP.SYRIN IV ONE (12:37)
[2018-04-08] MEDS ORDERED: KETOROLAC 30 MG/ML INJ FOR OR. INJ ONE (12:53)
[2018-04-08] MEDS ORDERED: NEOSTIGMINE METHYLSULFATE 5 MG/5 ML SYRINGE. ONE (12:54)
[2018-04-08] MEDS ORDERED: DESFLURANE 61 TO 120 MINUTES IH ONE (13:08)
--- NOTE | 2018-04-08 13:10 | RAD ---
Intraoperative cholangiogram, 04/08/2018: HISTORY: Cholecystectomy 4 spot films from surgery are presented for review. Contrast has been injected into the cystic duct remnant. 3 seconds of fluoroscopy time was utilized. The cystic duct is tortuous and superimposed over the common hepatic duct region. There is good flow contrast into the duodenum at the ampulla. No filling defect is seen in the common duct to suggest a retained calculus. There is minimal reflux into a portion of the pancreatic duct. The incompletely opacified intrahepatic ducts are unremarkable. IMPRESSION: No significant abnormality is detected. Electronically signed by: Landry Ha MD (04/08/2018 1:07 PM) [facility]
--- NOTE | 2018-04-08 13:16 | PDOC4 ---
Operative Note Operative Note Operative Note: Preoperative Diagnosis: Symptomatic cholelithiasis Postoperative Diagnosis: Same Procedure: Laparoscopic cholecystectomy with intraoperative cholangiogram Surgeons: Héctor Anesthesia: Gen. Estimated Blood Loss: 10 mL Specimen: Gallbladder to pathology Drains: None Complications: None Indications: The patient is a 62-year-old female who is been experiencing recurrent upper abdominal pain consistent with biliary colic. Surgical treatment was offered by means of a laparoscopic cholecystectomy. The risks of surgery were discussed which include bleeding, infection, bile duct injury, bile leak, pain, the potential for additional surgeries or procedures. The patient understands and would like to proceed. Description: The patient was taken to the operating room and laid supine on the operating table. General anesthesia was performed. The abdomen was prepped with ChloraPrep and draped in a standard surgical fashion. A small infraumbilical incision was made with a scalpel. The Veress needle was then inserted and a pneumoperitoneum was then created. A 5 mm trocar was then inserted and the laparoscope was introduced. In the upper midabdomen a 5 mm trocar was inserted and in the right upper quadrant two 2.3 mm mini lap graspers were inserted. The gallbladder was retracted cephalad. The cystic duct was dissected free from surrounding tissues. One clip was placed on the duct near the gallbladder junction. An opening was made in the duct and a cholangiocatheter placed within and secured with a clip. Using contrast dye and fluoroscopy an intraoperative cholangiogram was performed that appeared unremarkable. The clip and catheter were then withdrawn. Three clips were placed on the cystic duct and it was divided. The cystic artery was then identified, dissected free, doubly clipped and divided as well. The gallbladder was then mobilized away from the liver with cautery. The umbilical 5 millimeter trocar was exchanged for an 11 millimeter trocar. The gallbladder was then placed in an endoscopic bag and extracted at the umbilical trocar site. The fascia there was closed with 0 PDS sutures. All blood and irrigation fluid was suctioned and hemostasis was good. The remaining ports were removed and the pneumoperitoneum was relieved. The skin incisions were closed using 4-0 Monocryl suture. Steri-Strips and dressings were then applied. The patient tolerated the procedure well and was sent to the recovery room in stable condition. At the end of the case all counts were correct. ROBERTO KERNS MD Apr 08, 2018 13:16
--- NOTE | 2018-04-08 13:18 | DISCH ---
DISCHARGE INSTRUCTIONS Condition on Discharge Condition on Discharge: Stable Activity After Discharge Activity Instructions for Disc: Other, see below (no lifting over 20 lbs X 2 weeks) Diet after Discharge Diet after Discharge: Regular Wound Incision Care Wound/Incision Care: Other, see below (may remove bandaids tomorrow and shower) Follow-Up Follow up with: Dr Kerns in 2 weeks, call for appt [phone] ROBERTO KERNS MD Apr 08, 2018 13:18
[2018-04-08] MEDS ORDERED: OXYC-323 PO (14:19)
[2018-04-08] MEDS ORDERED: oxyCODONE/APAP 5/325 1 TAB TABLET PO PRN ×6 (14:30→19:45)
[2018-04-08] MEDS ORDERED: MORPHINE SULFATE 2 MG/ML VIAL. IV PRN ×2 (15:15→15:30)
[2018-04-08] MEDS ORDERED: ONDANSETRON PF 4 MG/2 ML VIAL. IV PRN (15:15)
[2018-04-08] MEDS ORDERED: MORPHINE SULFATE 4 MG/ML VIAL. IV PRN (15:30)
[2018-04-08] MEDS ORDERED: ONDANSETRON ODT 4 MG TAB.RAPDIS. PO PRN (19:30)
[2018-04-08] MEDS ORDERED: SIMVASTATIN 20 MG TABLET PO SCH (21:00)
[2018-04-08] MEDS ORDERED: tiZANidine 4 MG TABLET. PO SCH (21:00)
[2018-04-09] MEDS ORDERED: ACETAMINOPHEN 325 MG TABLET. PO PRN (02:15)
[2018-04-09 03:00] VITALS: BP 159/64
--- NOTE | 2018-04-09 07:14 | PDOC ---
PROGRESS NOTES Subjective Subjective sore at umbilical incision, a bit better today Objective Objective Vital Signs Date Time Temp Pulse Resp B/P (MAP) Pulse Ox O2 Delivery O2 Flow Rate FiO2 04/09/18 03:00 98.9 96 16 159/64 (95) 98 Nasal Cannula 2.0 98.9 Intake and Output 04/09/18 07:00 Intake Total 1635 ml Balance 1635 ml Intake Oral 135 ml IV Total 1500 ml # Voids 2 Physical Exam Abdomen: Soft (tender at incision) Plan Plan of Care Discharge Comment Review of Relevant I have reviewed the following items tigre (where applicable) has been applied. Medications Current Medications Prochlorperazine Edisylate (Compazine) 5 mg PACU PRN PRN IV NAUSEA, MRX1; Start 04/08/18 at 07:00; Stop 04/08/18 at 19:32; Status DC Hydromorphone HCl (Dilaudid) 0.5 mg PRN Q10MIN PRN IV SEV PAIN, Second choice; Start 04/08/18 at 07:00; Stop 04/08/18 at 19:31; Status DC Lidocaine HCl (Xylocaine-Mpf 1% 2ml Vial) 2 ml PRN 1X PRN ID PRIOR TO IV START ; Start 04/08/18 at 07:00; Stop 04/08/18 at 19:32; Status DC Ringer's Solution 1,000 ml @ 30 mls/hr Q24H IV Last administered on 04/08/18at 10:20; Start 04/08/18 at 07:00; Stop 04/08/18 at 18:59; Status DC Morphine Sulfate (Morphine Sulfate) 1 mg PRN Q10MIN PRN IV SEVERE PAIN Last administered on 04/08/18at 16:28; Start 04/08/18 at 07:00; Stop 04/08/18 at 19:32 ; Status DC Fentanyl Citrate (Fentanyl 2ml Vial) 50 mcg PRN Q5MIN PRN IV MODERATE TO SEVERE PAIN; Start 04/08/18 at 07:00; Stop 04/08/18 at 19:31; Status DC Fentanyl Citrate (Fentanyl 2ml Vial) 25 mcg PRN Q5MIN PRN IV MILD PAIN Last administered on 04/08/18at 14:15; Start 04/08/18 at 07:00; Stop 04/08/18 at 19:31 ; Status DC Ondansetron HCl (Zofran) 4 mg PRN Q6HRS PRN IV NAUSEA/VOMITING; Start 04/08/18 at 07:00; Stop 04/08/18 at 19:28; Status DC Levofloxacin/ Dextrose 150 ml @ 100 mls/hr 1X PREOP PRN IV PRIOR TO PROCEDURE Last administered on 04/08/18at 12:10; Start 04/08/18 at 06:00; Stop 04/08/18 at 18:00; Status DC Scopolamine (Transderm-Scop) 1 patch Q3DAYS TD Last administered on 04/08/18at 09:44; Start 04/08/18 at 09:44; Stop 04/08/18 at 09:45; Status DC Scopolamine (Transderm-Scop) 1 patch STK-MED ONCE TD ; Start 04/08/18 at 09:43; Stop 04/08/18 at 09:44; Status DC Dexamethasone Sodium Phosphate (Decadron) 20 mg STK-MED ONCE .ROUTE ; Start 04/08/18 at 09:56; Stop 04/08/18 at 09:58; Status DC Famotidine (Pepcid Vial) 20 mg STK-MED ONCE .ROUTE ; Start 04/08/18 at 09:56; Stop 04/08/18 at 09:58; Status DC Ondansetron HCl (Zofran) 4 mg STK-MED ONCE .ROUTE ; Start 04/08/18 at 09:56; Stop 04/08/18 at 09:58; Status DC Propofol 20 ml @ As Directed STK-MED ONCE IV ; Start 04/08/18 at 09:56; Stop at 09:58; Status DC Midazolam HCl (Versed) 2 mg STK-MED ONCE .ROUTE ; Start 04/08/18 at 09:56; Stop 04/08/18 at 09:58; Status DC Fentanyl Citrate (Fentanyl 2ml Vial) 100 mcg STK-MED ONCE .ROUTE ; Start at 09:56; Stop 04/08/18 at 09:58; Status DC Rocuronium Nordman (Zemuron) 50 mg STK-MED ONCE .ROUTE ; Start 04/08/18 at 09:56 ; Stop 04/08/18 at 09:58; Status DC Scopolamine (Transderm-Scop) 1 patch 1X ONCE TD ; Start 04/08/18 at 10:30; Stop 04/08/18 at 10:31; Status DC Cellulose (Surgicel Hemostat 4x8) 1 each STK-MED ONCE .ROUTE ; Start 04/08/18 at 10:50; Stop 04/08/18 at 11:51; Status DC Cellulose (Surgicel Hemostat 4x8) 1 each STK-MED ONCE .ROUTE ; Start 04/08/18 at 10:51; Stop 04/08/18 at 11:52; Status DC Bupivacaine HCl/ Epinephrine Bitart (Sensorcain-Mpf Epi 0.5%-1:088666) 30 ml STK -MED ONCE .ROUTE Last administered on 04/08/18at 13:12; Start 04/08/18 at 10:51 ; Stop 04/08/18 at 11:53; Status DC Iohexol (Omnipaque 300 Mg/ml) 100 ml STK-MED ONCE .ROUTE ; Start 04/08/18 at 10: 51; Stop 04/08/18 at 11:53; Status DC Glycopyrrolate (Robinul) 1 mg STK-MED ONCE .ROUTE ; Start 04/08/18 at 12:34; Stop 04/08/18 at 12:35; Status DC Ephedrine Sulfate (ePHEDrine PF IN SALINE SYRINGE) 50 mg STK-MED ONCE IV ; Start 04/08/18 at 12:37; Stop 04/08/18 at 12:38; Status DC Ketorolac Tromethamine (Toradol For Or Only) 30 mg STK-MED ONCE INJ ; Start 04/08/18 at 12:53; Stop 04/08/18 at 12:55; Status DC Neostigmine Methylsulfate (Neostigmine Methylsulfate) 5 mg STK-MED ONCE .ROUTE ; Start 04/08/18 at 12:54; Stop 04/08/18 at 12:55; Status DC Desflurane (Suprane) 60 ml STK-MED ONCE IH ; Start 04/08/18 at 13:08; Stop 04/08 at 13:09; Status DC Fentanyl Citrate (Fentanyl 2ml Vial) 100 mcg STK-MED ONCE .ROUTE ; Start at 14:09; Stop 04/08/18 at 14:11; Status DC Oxycodone/ Acetaminophen (Percocet 5/325) 1 tab 1X PACU PRN PO PAIN; Start 04/08/18 at 14:30; Stop 04/08/18 at 19:29; Status DC Oxycodone/ Acetaminophen (Percocet 5/325) 2 tab 1X PACU PRN PO PAIN Last administered on 04/08/18at 14:38; Start 04/08/18 at 14:30; Stop 04/08/18 at 19:30 ; Status DC Ondansetron HCl (Zofran) 4 mg PRN Q6HRS PRN IV NAUSEA/VOMITING 1ST CHOICE; Start 04/08/18 at 15:15 Morphine Sulfate (Morphine Sulfate) 1 mg PRN Q3HRS PRN IV PAIN MILD; Start 04/08/18 at 15:15 Oxycodone/ Acetaminophen (Percocet 5/325) 1 tab PRN Q4HRS PRN PO PAIN MILD; Start 04/08/18 at 15:15; Stop 04/08/18 at 19:30; Status DC Morphine Sulfate (Morphine Sulfate) 2 mg PRN Q3HRS PRN IV PAIN MODERATE; Start 04/08/18 at 15:30 Morphine Sulfate (Morphine Sulfate) 3 mg PRN Q3HRS PRN IV PAIN SEVERE; Start 04/08/18 at 15:30 Oxycodone/ Acetaminophen (Percocet 5/325) 2 tab PRN Q4HRS PRN PO PAIN MODERATE TO SEVERE; Start 04/08/18 at 15:30; Stop 04/08/18 at 19:30; Status DC Ondansetron HCl (Zofran Odt) 4 mg PRN Q6HRS PRN PO nausea; Start 04/08/18 at 19 :30 Oxycodone/ Acetaminophen (Percocet 5/325) 1 tab PRN Q4HRS PRN PO PAIN SCALE 0-4 ; Start 04/08/18 at 19:30 Paroxetine HCl (Paxil) 30 mg DAILY PO ; Start 04/09/18 at 09:00 Simvastatin (Zocor) 20 mg HS PO Last administered on 04/08/18at 19:53; Start at 21:00 Tizanidine HCl (Zanaflex) 4 mg QHS PO Last administered on 04/08/18at 19:53; Start 04/08/18 at 21:00 Oxycodone/ Acetaminophen (Percocet 5/325) 2 tab PRN Q4HRS PRN PO PAIN SCALE 5- 10; Start 04/08/18 at 19:45 Acetaminophen (Tylenol) 650 mg PRN Q6HRS PRN PO MILD PAIN Last administered on 04/09/18at 03:01; Start 04/09/18 at 02:15 Active Scripts Active Ondansetron Odt (Ondansetron) 4 Mg Tab.rapdis 1 Tab PO PRN Q6-8HRS Proventil Hfa Inhaler (Albuterol Sulfate) 6.7 Gm Hfa.aer.ad 1 Puff IH PRN Q4HRS PRN Reported Percocet 5-325 Mg Tablet (Oxycodone/Acetaminophen) 1 Each Tablet 1-2 Tab PO Q4- 6HRS PRN Tizanidine Hcl 4 Mg Tablet 1 Tab PO QHS Simvastatin 20 Mg Tablet 1 Tab PO QHS Paroxetine Hcl 30 Mg Tablet 1 Tab PO QHS Ventolin Hfa Inhaler (Albuterol Sulfate) 18 Gm Hfa.aer.ad 2 Puff IH PRN Q4-6HRS Vitals/I & O Vital Sign - Last 24 Hours 04/08/18 04/08/18 04/08/18 04/08/18 10:12 10:13 13:29 13:44 Temp 97.8 97.6 98.3 97.8 97.6 98.3 Pulse 87 16 87 79 Resp 16 16 18 16 B/P (MAP) 160/86 142/82 139/72 Pulse Ox 96 96 95 95 O2 Delivery Room Air Room Air Room Air 04/08/18 04/08/18 04/08/18 04/08/18 13:44 13:58 14:13 14:28 Temp 98.2 98.2 Pulse 86 71 90 72 Resp 16 16 18 18 B/P (MAP) 133/71 144/71 138/72 138/72 Pulse Ox 94 93 93 94 O2 Delivery Room Air Room Air Room Air Room Air 04/08/18 04/08/18 04/08/18 04/08/18 14:38 14:43 14:58 15:13 Pulse 84 86 86 Resp 18 16 16 18 B/P (MAP) 133/71 147/77 146/79 Pulse Ox 93 95 94 93 O2 Delivery Room Air Room Air Room Air Room Air 04/08/18 04/08/18 04/08/18 04/08/18 15:28 16:14 16:25 16:28 Pulse 88 101 93 Resp 18 16 16 16 B/P (MAP) 150/77 161/86 (111) 146/83 (104) Pulse Ox 94 94 92 O2 Delivery Room Air Room Air Nasal Cannula Nasal Cannula O2 Flow Rate 2.0 2.0 04/08/18 04/08/18 04/08/18 04/08/18 16:30 16:55 17:00 17:10 Pulse 106 105 Resp 16 16 16 B/P (MAP) 152/79 (103) 145/82 (103) Pulse Ox 96 94 O2 Delivery Room Air Nasal Cannula Room Air Nasal Cannula O2 Flow Rate 2.0 2.0 04/08/18 04/08/18 04/08/18 04/08/18 17:40 19:00 19:54 22:49 Temp 97.7 98.1 97.7 98.1 Pulse 98 105 94 Resp 16 16 16 B/P (MAP) 158/83 (108) 153/93 (113) 131/73 (92) Pulse Ox 97 96 96 O2 Delivery Nasal Cannula Nasal Cannula Room Air Nasal Cannula O2 Flow Rate 2.0 2.0 2.0 2.0 04/09/18 03:00 Temp 98.9 98.9 Pulse 96 Resp 16 B/P (MAP) 159/64 (95) Pulse Ox 98 O2 Delivery Nasal Cannula O2 Flow Rate 2.0 Intake and Output 04/08/18 04/08/18 04/09/18 15:00 23:00 07:00 Intake Total 15 ml 1500 ml 120 ml Balance 15 ml 1500 ml 120 ml ROBERTO KERNS MD Apr 09, 2018 07:14
--- NOTE | 2018-04-09 07:16 | PDOC3 ---
Discharge Summary Visit Information Date of Admission: Apr 08, 2018 Date of Discharge: Apr 09, 2018 Admitting Diagnosis: Symptomatic cholelithiasis Brief Hospital Course Allergies Allergies Coded Allergies Type Severity Reaction Last Updated Verified Penicillins Allergy Intermediate Hives 04/04/18 Yes Vital Signs Vital Signs Date Time Temp Pulse Resp B/P (MAP) Pulse Ox O2 Delivery O2 Flow Rate FiO2 04/09/18 03:00 98.9 96 16 159/64 (95) 98 Nasal Cannula 2.0 98.9 Brief Hospital Course Ms. Fernandez is a 62 old female who presented with symptomatic cholelithiasis. She underwent a laparoscopic cholecystectomy and her postoperative course was uneventful. Discharge Information Condition at Discharge: Stable Follow Up: Weeks (2 weeks) Disposition/Orders: D/C to Home Scheduled Albuterol Sulfate (Ventolin Hfa Inhaler) 18 Gm Hfa.aer.ad, 2 PUFF IH PRN Q4-6HRS , #1 (Reported) Entered as Reported by: JORGE ALBERTO HERRMANN on 07/28/14 0334 Last Taken: Unknown Dose on 04/07/18 0900 Last Action: Last Taken Edited on 04/08/181925 by RENO NOLEN Ondansetron (Ondansetron Odt) 4 Mg Tab.rapdis, 1 TAB PO PRN Q6-8HRS for VOMITING , #16 Prescribed by: TULIO NEVAREZ D.O. on 03/20/18 1504 Last Taken: Unknown Dose on 04/07/18 2200 Last Action: Continued on 1925 by RENO NOLEN Paroxetine Hcl (Paroxetine Hcl) 30 Mg Tablet, 1 TAB PO QHS, #30 Ref 2 (Reported) Entered as Reported by: MITUL SMITH on 04/05/18 1046 Last Taken: Unknown Dose on 04/07/18 0900 Last Action: Converted on 1925 by RENO NOLEN Simvastatin (Simvastatin) 20 Mg Tablet, 1 TAB PO QHS, #30 Ref 5 (Reported) Entered as Reported by: MITUL SMITH on 04/05/18 1047 Last Taken: Unknown Dose on 04/07/18 1700 Last Action: Converted on 1925 by RENO NOLEN Tizanidine Hcl (Tizanidine Hcl) 4 Mg Tablet, 1 TAB PO QHS, #30 (Reported) Entered as Reported by: MITUL SMITH on 04/05/18 105 Last Taken: Unknown Dose on 04/07/182199 Last Action: Converted on 1925 by RENO NOLEN Scheduled PRN Albuterol Sulfate (Proventil Hfa Inhaler) 6.7 Gm Hfa.aer.ad, 1 PUFF IH PRN Q4HRS PRN for asthma, #1 NS Prescribed by: TULIO NEVAREZ D.O. on 09/19/16 182 Last Taken: Unknown Dose on 04/07/18 0900 Last Action: Last Taken Edited on 04/08/181925 by RNEO NOLEN Oxycodone/Apap 5-325 (Percocet 5-325 Mg Tablet) 1 Each Tablet, 1-2 TAB PO Q4- 6HRS PRN for PAIN, #30 (Reported) Entered as Reported by: Payam Ferrer on 04/08/18 1419 Last Taken: Unknown Dose on 04/07/182199 Last Action: Continued on 1925 by RENO NOLEN Discontinued Medications Acetaminophen (Tylenol Extra Strength) 500 Mg Tablet, 1,000 MG PO PRN PRN for PAIN, (Reported) Entered as Reported by: MITUL SMITH on 04/05/18 1051 Last Action: New Order on 04/05/181050 by ROBERTO PATEL MD Apr 09, 2018 07:16
[2018-04-09] MEDS ORDERED: PARoxetine 10 MG TABLET PO SCH (09:00)
--- NOTE | 2018-04-09 17:09 | PATHOLOGY ---
[facility] Accession Number: [id number] . 01 Material submitted: . GALLBLADDER . 01 Clinical history: . Symptomatic cholelithiasis . 02 Diagnosis: Gallbladder, laparoscopic cholecystectomy: - Cholelithiasis. - Chronic cholecystitis. (JPM:nathan; 04/09/2018) QMS/04/09/2018 . 02 Comment: There is no evidence of malignancy. . 02 Electronically signed: . Miguel Angel Garzon MD, Pathologist NPI- [id number] . 01 Gross description: . The specimen is received in formalin, labeled "Jim, Rossy, gallbladder", is a distended gallbladder measuring 10.0 x 3.4 x 2.7 cm with smooth, glistening kovacs-green serosa. The lumen is filled with yellow-green viscous bile admixed with an oval cobblestoned surfaced calculi and its fragments measuring 3.7 x 2.8 x 2.5 cm. The mucosa is de luna-yellow and granular. The gallbladder wall measures up to 0.1 cm thick. No discrete masses are identified. Cosmetic Chemist tissue is submitted in A1. (SWS; 04/08/2018) SHS/SHS . 02 Pathologist provided ICD-10: K80.10 . 02 CPT . 595260 Specimen Comment: A courtesy copy of this report has been sent to Specimen Comment: [phone], . Specimen Comment: Report sent to and Specimen Comment: A duplicate report has been generated due to demographic updates. Performed at: [address], [place], [place] [id number] MD César Adkins MD Phone: [phone] Performed at: 02 [facility] [address] [place], [place] [id number] MD Miguel Angel Garzon MD Phone: [phone]
== END 2018-04-09 10:38 | disposition home or self-care (01) ==
LOC: SURG 09:16 → 4 NORTH 15:36
PROVIDERS: ADMIT Surgery; ATTEND Surgery
DX: K80.10 Calculus of gallbladder with chronic cholecystitis without obstruction (principal); F41.9 Anxiety disorder, unspecified; F32.9 Major depressive disorder, single episode, unspecified; J45.909 Unspecified asthma, uncomplicated
CPT/HCPCS: 47563; 74300; 88304; 96374; G0378; G0379; J1100; J1885; J1956; J2250; J2270; J2405; J2704; J2710; J3010; J3490; J7030; J7120; Q9967; S0028

== ENCOUNTER 2018-09-16 07:51 | Emergency (ER) | payer BC ==
[~2018-09-16] VITALS: Ht 175.3 cm; Wt 94.8 kg
[~2018-09-16 07:51] MED LIST changes: +ALBU2.5V8 IH; +HYDR-3164 PO; -HYDR-971 PO; -HYDROmorphone 2 MG/ML VIAL IV PRN; -IV RINGERS,LACTATED 1000ML 1,000 ML IV SCH; -LIDOCAINE 1% PF 2 ML VIAL. ID PRN; -MORPHINE SULFATE 2 MG/ML VIAL. IV PRN; -ONDANSETRON PF 4 MG/2 ML VIAL. IV PRN; +OXYC1TAB15 PO; -PROCHLORPERAZINE 10 MG/2 ML VIAL. IV PRN; -PROVENTIL HFA6.7 GM IH; -fentaNYL PF VIAL 100 MCG/2 ML VIAL IV PRN
[2018-09-16 09:05] VITALS: BP 152/88
--- NOTE | 2018-09-16 09:10 | PHYS DOC ---
Past Medical History Past Medical History: Anxiety, Asthma, Depression, Gallstones, Other Additional Past Medical Histor: Hypoglycemia, sciatic nerve pain, miscarriage x3 Past Surgical History: Hysterectomy, Tonsillectomy, Other Additional Past Surgical Histo: 3 D&C Alcohol Use: Rarely Drug Use: None Adult General Chief Complaint Chief Complaint: MECHANICAL FALL HPI HPI Patient is a 63 year old female who presents to the ED today complaining of mild bilateral rib pain that began 1 week ago after she fell, patient states she was walking in her daughter's kitchen, she states there was a transition floor, she states she did not realize the transition floor had a 1 inch drop, she states she made a step forward and fell landing on her left ribs and right ribs, denies any LOC or heating her head on the ground. She describes the pain as mild and worse on deep breaths. Review of Systems Review of Systems Constitutional: Denies fever or chills [] Eyes: Denies change in visual acuity, redness, or eye pain [] HENT: Denies nasal congestion or sore throat [] Respiratory: Reports bilateral rib pain. Denies cough or shortness of breath [] Cardiovascular: No additional information not addressed in HPI [] GI: Denies abdominal pain, nausea, vomiting, bloody stools or diarrhea [] : Denies dysuria or hematuria [] Musculoskeletal: Denies back pain or joint pain [] Integument: Denies rash or skin lesions [] Neurologic: Denies headache, focal weakness or sensory changes [] All other systems were reviewed and found to be within normal limits, except as documented in this note. Allergies Allergies Allergies Coded Allergies Type Severity Reaction Last Updated Verified Penicillins Allergy Intermediate Hives 04/04/18 Yes Physical Exam Physical Exam Constitutional: Well developed, well nourished, no acute distress, non-toxic appearance. [] HENT: Normocephalic, atraumatic, bilateral external ears normal, oropharynx moist, no oral exudates, nose normal. [] Eyes: PERRLA, EOMI, conjunctiva normal, no discharge. [] Neck: Normal range of motion, no tenderness, supple, no stridor. [] Cardiovascular:Heart rate regular rhythm, no murmur [] Lungs & Thorax: Bilateral ribs with no bruising slight tenderness on palpation of anterior bilateral ribs mid clavicular line approx ribs 5-8. Bilateral breath sounds clear to auscultation [] Abdomen: Bowel sounds normal, soft, no tenderness, no masses, no pulsatile masses. [] Skin: Warm, dry, no erythema, no rash. [] Back: No tenderness, no CVA tenderness. [] Extremities: No tenderness, no cyanosis, no clubbing, ROM intact, no edema. [] Neurologic: Alert and oriented X 3, normal motor function, normal sensory function, no focal deficits noted. [] Psychologic: Affect normal, judgement normal, mood normal. [] Current Patient Data Vital Signs Vital Signs Date Time Temp Pulse Resp B/P (MAP) Pulse Ox O2 Delivery O2 Flow Rate FiO2 09/16/18 09:05 98.6 95 16 152/88 (109) 97 Room Air 98.6 EKG EKG [] Radiology/Procedures Radiology/Procedures PROCEDURE: CHEST PA & LATERAL Chest, 2 views, 09/16/2018: HISTORY: Fall, rib pain Comparison is made to a study from 05/18/2017. The heart size and pulmonary vascularity are normal. A calcified granuloma is present in the right base. No pulmonary infiltrate is seen. There is no evidence of pleural fluid or pneumothorax. IMPRESSION: No acute cardiopulmonary abnormality is detected. Electronically signed by: Landry Ha MD (09/16/2018 9:10 AM) [facility] DICTATED and SIGNED BY: LANDRY HA MD DATE: 09/16/18 09 Course & Med Decision Making Course & Med Decision Making Pertinent Labs and Imaging studies reviewed. (See chart for details) This is a 63-year-old female patient presenting to the ED today with bilateral rib pain status post falling a week ago. Chest x-ray interpreted by radiologist is negative for any acute findings. Patient was discharged with instructions to take deep breaths 10 times every hour. OTC pain relievers. Given prescription for Tizidine and mobic. Follow-up with PCP Dr. Deleon in one week. Dragon Disclaimer Dragon Disclaimer This electronic medical record was generated, in whole or in part, using a voice recognition dictation system. Departure Departure Impression: Primary Impression: Fall from standing Additional Impressions: Contusion of rib on left side Contusion of rib on right side Disposition: 01 HOME, SELF-CARE Condition: STABLE Referrals: IGNACIO DELEON MD (PCP) follow up in 1-2 weeks Patient Instructions: Fall Prevention and Home Safety, Rib Contusion Additional Instructions: You have rib contusion. Try to take deep breaths 10 times every hour while awake. Ice the affected areas. Follow-up with your doctor in 1-2 weeks. Scripts Tizanidine Hcl (TIZANIDINE HCL) 2 Mg Capsule 1 MG PO QID PRN for MUSCLE SPASMS, #30 CAP Prov: SRIDEVI ADKINS APRN 09/16/18 Problem Qualifiers Primary Impression: Fall from standing Encounter type: initial encounter Qualified Codes: W19.XXXA - Unspecified fall, initial encounter Additional Impressions: Contusion of rib on left side Encounter type: initial encounter Qualified Codes: S20.212A - Contusion of left front wall of thorax, initial encounter Contusion of rib on right side Encounter type: initial encounter Qualified Codes: S20.211A - Contusion of right front wall of thorax, initial encounter SRIDEVI ADKINS APRN Sep 16, 2018 09:10
--- NOTE | 2018-09-16 09:13 | RAD ---
Chest, 2 views, 09/16/2018: HISTORY: Fall, rib pain Comparison is made to a study from 05/18/2017. The heart size and pulmonary vascularity are normal. A calcified granuloma is present in the right base. No pulmonary infiltrate is seen. There is no evidence of pleural fluid or pneumothorax. IMPRESSION: No acute cardiopulmonary abnormality is detected. Electronically signed by: Landry Ha MD (09/16/2018 9:10 AM) [facility]
[2018-09-16] MEDS ORDERED: TIZA2CAP PO (09:38)
== END 2018-09-16 09:47 | disposition home or self-care (01) ==
LOC: ER 07:51
DX: S20.212A Contusion of left front wall of thorax, initial encounter (principal); S20.211A Contusion of right front wall of thorax, initial encounter; F41.9 Anxiety disorder, unspecified; J45.909 Unspecified asthma, uncomplicated; F32.9 Major depressive disorder, single episode, unspecified; Z90.710 Acquired absence of both cervix and uterus; Z90.89 Acquired absence of other organs; Z88.0 Allergy status to penicillin; W18.39XA Other fall on same level, initial encounter; Y93.01 Activity, walking, marching and hiking; Y92.000 Kitchen of unspecified non-institutional (private) residence as the place of occurrence of the external cause; Y99.8 Other external cause status
CPT/HCPCS: 71046; 99283

== ENCOUNTER 2018-10-28 09:49 | Emergency (ER) | payer BC ==
[~2018-10-28] VITALS: Ht 175.3 cm; Wt 95.3 kg
[~2018-10-28 09:49] MED LIST changes: +TIZA2CAP PO
[2018-10-28 10:21] VITALS: BP 161/106
[2018-10-28] MEDS ORDERED: predniSONE 10 MG TABLET PO ONE (10:45)
[2018-10-28] MEDS ORDERED: IPRATRPIUM/ALBUTEROL 0.5/2.5MG 3 ML NEBU. NEB ONE (10:45)
[2018-10-28] MEDS ORDERED: ALPRAZolam 0.5 MG TABLET PO ONE (10:45)
--- NOTE | 2018-10-28 10:47 | PHYS DOC ---
Past Medical History Past Medical History: Anxiety, Asthma, Depression, Gallstones, Other Additional Past Medical Histor: Hypoglycemia, sciatic nerve pain, miscarriage x3 Past Surgical History: Hysterectomy, Tonsillectomy, Other Additional Past Surgical Histo: 3 D&C Alcohol Use: Occasionally Drug Use: None Adult General Chief Complaint Chief Complaint: ASTHMA HPI HPI Patient is a 63 year old female who presents with complaining of wheezing. Patient states she has history of asthma and for the last 1 week has had nonproductive cough and nasal congestion with wheezing and intermittent episodes of shortness of breath with cough on exertion. Patient is chest pain, fever and chills, vomiting and diarrhea, sick contact, smoking. She did not have any inhalers or asthma medication at home. Patient has history of anxiety and complaining of anxiety without suicidal or homicidal ideation. Review of Systems Review of Systems Constitutional: Denies fever or chills [] Eyes: Denies change in visual acuity, redness, or eye pain [] HENT: Reports nasal congestion and sore throat Respiratory: Reports cough and shortness of breath Cardiovascular: No additional information not addressed in HPI [] GI: Denies abdominal pain, nausea, vomiting, bloody stools or diarrhea [] : Denies dysuria or hematuria [] Musculoskeletal: Denies back pain or joint pain [] Integument: Denies rash or skin lesions [] Neurologic: Denies headache, focal weakness or sensory changes [] Endocrine: Denies polyuria or polydipsia [] All other systems were reviewed and found to be within normal limits, except as documented in this note. Current Medications Current Medications Current Medications Medications (Trade) Dose Ordered Sig/Russel Start Time Stop Time Status Last Admin Dose Admin Albuterol/ Ipratropium (Duoneb) 3 ml 1X ONCE 10/28/18 10:45 10/28/18 10:46 DC 10/28/18 11:09 3 ML Alprazolam (Xanax) 1 mg 1X ONCE 10/28/18 10:45 10/28/18 10:46 DC 10/28/18 10:51 1 MG Prednisone (Prednisone) 50 mg 1X ONCE 10/28/18 10:45 10/28/18 10:46 DC 10/28/18 10:51 50 MG Allergies Allergies Allergies Coded Allergies Type Severity Reaction Last Updated Verified Penicillins Allergy Intermediate Hives 9/27/18 Yes Physical Exam Physical Exam Constitutional: Well nourished, mild distress, non-toxic appearance. [] HENT: Normocephalic, atraumatic, bilateral external ears normal, oropharynx moist, no oral exudates, nose normal. [] Eyes: PERRLA, EOMI, conjunctiva normal, no discharge. [] Neck: Normal range of motion, no tenderness, supple, no stridor. [] Cardiovascular:Heart rate regular rhythm, no murmur [] Lungs & Thorax: No respiratory distress, mild wheezing. Abdomen: Bowel sounds normal, soft, no tenderness, no masses, no pulsatile masses. [] Skin: Warm, dry, no erythema, no rash. [] Neurologic: Alert and oriented X 3, normal motor function, normal sensory f unction, no focal deficits noted. [] Psychologic: Affect anxious, judgement normal, mood normal. [] Current Patient Data Vital Signs Vital Signs Date Time Temp Pulse Resp B/P (MAP) Pulse Ox O2 Delivery O2 Flow Rate FiO2 10/28/18 11:12 99 Room Air 10/28/18 10:21 98.3 91 18 161/106 (124) 98.3 EKG EKG [] Radiology/Procedures Radiology/Procedures [facility] [address] [place], [place] [id number] IMAGING REPORT Signed PATIENT: PIPE BARROS ACCOUNT: [id number] : 1955 LOCATION: ER AGE: 63 SEX: F EXAM STATUS: REG ER ORD. PHYSICIAN: EV SIDDIQI MD REASON: cough and shortness of breath PROCEDURE: CHEST PA & LATERAL CHEST PA LATERAL History: SOA, NON-PRODUCTIVE COUGH X 1 WEEK, HX ASTHMA Comparison: Two-view chest, September 16, 2018. Findings: The cardiomediastinal silhouette is normal. Pulmonary vasculature is normal. Stable calcified granuloma right lung base. The lungs are clear. No pleural effusion or pneumothorax is seen. There is no acute bone abnormality. IMPRESSION: No acute cardiopulmonary process. Electronically signed by: Farhan La MD (10/28/2018 11:34 AM) [id number] DICTATED and SIGNED BY: FARHAN LA MD DATE: 10/28/18 2897 Course & Med Decision Making Course & Med Decision Making Pertinent Imaging studies reviewed. (See chart for details) I've spoken with the patient and/or caregivers. I've explained the patient's condition, diagnosis and treatment plan based on information available to me at this time. I've answered the patient's and/or caregivers questions and addressed any concerns. The patient and/or caregivers have a good understanding the patient's diagnosis, condition and treatment plan as can be expected at this point. Vital signs have been stabilized. The patient's condition is stable for discharge from the emergency department. The patient will pursue further outpatient evaluation with her primary care provider or other designated consulting physician as outlined in the discharge instructions. Patient and/or caregivers are agreeable to this plan of care and follow-up instructions have been explained in detail. The patient and/or caregivers have received these instructions in written format and expressed understanding of these discharge instructions. The patient and her caregivers are aware that if any significant change in condition or worsening of symptoms should prompt him to immediately return to this of the closest emergency department. If an emergent department is not readily available I would encourage him to call 911. Melindaon Disclaimer Dragon Disclaimer This electronic medical record was generated, in whole or in part, using a voice recognition dictation system. Departure Departure Impression: Primary Impression: Asthma exacerbation Additional Impression: Anxiety Disposition: 01 HOME, SELF-CARE (at 1157) Condition: IMPROVED Referrals: IGNACIO ELIAS MD (PCP) Patient Instructions: Anxiety and Panic Attacks, Asthma Attacks, Prevention, Asthma, Acute Bronchospasm Additional Instructions: Drink plenty of liquids Follow-up with your primary care physician in 3-5 days Return to ER if not getting better Scripts Azithromycin (ZITHROMAX) 250 Mg Tablet 1 PKG PO UD for infection, #1 PKG Prov: EV SIDDIQI MD 10/28/18 Albuterol Sulfate (PROAIR HFA INHALER) 8.5 Gm Hfa.aer.ad 2 PUFF INH PRN Q6HRS PRN for SHORTNESS OF BREATH, #1 INHALER 0 Refills Prov: EV SIDDIQI MD 10/28/18 Methylprednisolone (MEDROL) 4 Mg Tab.ds.pk 1 PKG PO UD for inflammation, #1 PKG Prov: EV SIDDIQI MD 10/28/18 Problem Qualifiers EV SIDDIQI MD Oct 28, 2018 10:47
--- NOTE | 2018-10-28 11:37 | RAD ---
CHEST PA LATERAL History: SOA, NON-PRODUCTIVE COUGH X 1 WEEK, HX ASTHMA Comparison: Two-view chest, September 16, 2018. Findings: The cardiomediastinal silhouette is normal. Pulmonary vasculature is normal. Stable calcified granuloma right lung base. The lungs are clear. No pleural effusion or pneumothorax is seen. There is no acute bone abnormality. IMPRESSION: No acute cardiopulmonary process. Electronically signed by: Farhan La MD (10/28/2018 11:34 AM) [id number]
[2018-10-28] MEDS ORDERED: AZIT250T PO (11:59)
[2018-10-28] MEDS ORDERED: ALBU2.5V8 INH (11:59)
[2018-10-28] MEDS ORDERED: METH4TAB2 PO (11:59)
== END 2018-10-28 12:05 | disposition home or self-care (01) ==
LOC: ER 09:49
DX: J45.901 Unspecified asthma with (acute) exacerbation (principal); F41.9 Anxiety disorder, unspecified; F32.9 Major depressive disorder, single episode, unspecified; Z90.710 Acquired absence of both cervix and uterus; Z88.0 Allergy status to penicillin
CPT/HCPCS: 71046; 94640; 99284; J7512; J7620

== ENCOUNTER 2019-06-06 08:51 | Emergency (ER) | payer BC ==
[~2019-06-06] VITALS: Ht 175.3 cm; Wt 96.6 kg
[~2019-06-06 08:51] MED LIST changes: -ALBU2.5V8 IH; +ALBU2.5V8 INH; +AZIT250T PO; +METH4TAB2 PO; -PANT40TA3 PO; +PANT40TA77 PO; +PROVENTIL HFA6.7 GM IH; +SIMV20TA18 PO; -SIMV20TA3 PO; -TIZA4TAB PO; +TIZA4TAB2 PO
[2019-06-06] MEDS ORDERED: IPRATRPIUM/ALBUTEROL 0.5/2.5MG 3 ML NEBU. NEB ONE (09:30)
--- NOTE | 2019-06-06 09:42 | PHYS DOC ---
Past Medical History Past Medical History: Anxiety, Asthma, Depression, Gallstones, Other Additional Past Medical Histor: Hypoglycemia, sciatic nerve pain, miscarriage x3 Past Surgical History: Hysterectomy, Tonsillectomy, Other Additional Past Surgical Histo: 3 D&C Alcohol Use: Occasionally Drug Use: None Adult General Chief Complaint Chief Complaint: SHORTNESS OF BREATH [facility] HPI 64-year-old female with underlying history of asthma presents to the emergency department with complaints of shortness of breath and wheeze. She states she's been out of her nebulizer treatments however does have inhaler at home. Been ongoing for 1 week however worsening today. She denies any nausea, vomiting, diarrhea, cough. Nothing makes her symptoms worse, nothing makes her symptoms better. She denies any fever. Review of Systems Review of Systems Constitutional: Denies fever or chills [] Eyes: Denies change in visual acuity, redness, or eye pain [] HENT: Denies nasal congestion or sore throat [] Respiratory: SOB/Wheeze Cardiovascular: No additional information not addressed in HPI [] GI: Denies abdominal pain, nausea, vomiting, bloody stools or diarrhea [] Musculoskeletal: Denies back pain or joint pain [] Integument: Denies rash or skin lesions [] Neurologic: Denies headache, focal weakness or sensory changes [] All other systems were reviewed and found to be within normal limits, except as documented in this note. Current Medications Current Medications Current Medications Medications (Trade) Dose Ordered Sig/Russel Start Time Stop Time Status Last Admin Dose Admin Albuterol/ Ipratropium (Duoneb) 3 ml 1X ONCE 06/06/19 09:30 06/06/19 09:36 DC 06/06/19 09:36 3 ML Allergies Allergies Allergies Coded Allergies Type Severity Reaction Last Updated Verified Penicillins Allergy Intermediate Hives 04/04/18 Yes Physical Exam Physical Exam Constitutional: Well developed, well nourished, no acute distress, non-toxic appearance. [] HENT: Normocephalic, atraumatic, bilateral external ears normal, oropharynx moist, no oral exudates, nose normal. [] Eyes: PERRLA, EOMI, conjunctiva normal, no discharge. [] Cardiovascular:Heart rate regular rhythm, no murmur [] Lungs & Thorax: Decreased BS appreciated bilateral, minimal wheeze appreciated Abdomen: Bowel sounds normal, soft, no tenderness, no masses, no pulsatile masses. [] Skin: Warm, dry, no erythema, no rash. [] Back: No tenderness, no CVA tenderness. [] Extremities: No tenderness, no edema. [] Neurologic: Alert and oriented X 3, no focal deficits noted. [] Psychologic: Affect normal, judgement normal, mood normal. [] Current Patient Data Vital Signs Vital Signs Date Time Temp Pulse Resp B/P (MAP) Pulse Ox O2 Delivery O2 Flow Rate FiO2 06/06/19 09:37 96 Room Air 06/06/19 09:10 97.9 88 20 168/84 (112) 97.9 Lab Values Laboratory Tests Test 06/06/19 09:30 White Blood Count 5.1 x10^3/uL (4.0-11.0) Red Blood Count 4.76 x10^6/uL (3.50-5.40) Hemoglobin 14.2 g/dL (12.0-15.5) Hematocrit 41.6 % (36.0-47.0) Mean Corpuscular Volume 87 fL (79-100) Mean Corpuscular Hemoglobin 30 pg (25-35) Mean Corpuscular Hemoglobin Concent 34 g/dL (31-37) Red Cell Distribution Width 13.7 % (11.5-14.5) Platelet Count 167 x10^3/uL (140-400) Neutrophils (%) (Auto) 64 % (31-73) Lymphocytes (%) (Auto) 24 % (24-48) Monocytes (%) (Auto) 8 % (0-9) Eosinophils (%) (Auto) 4 % (0-3) H Basophils (%) (Auto) 1 % (0-3) Neutrophils # (Auto) 3.3 x10^3/uL (1.8-7.7) Lymphocytes # (Auto) 1.2 x10^3/uL (1.0-4.8) Monocytes # (Auto) 0.4 x10^3/uL (0.0-1.1) Eosinophils # (Auto) 0.2 x10^3/uL (0.0-0.7) Basophils # (Auto) 0.0 x10^3/uL (0.0-0.2) Sodium Level 142 mmol/L (136-145) Potassium Level 3.9 mmol/L (3.5-5.1) Chloride Level 103 mmol/L (98-107) Carbon Dioxide Level 32 mmol/L (21-32) Anion Gap 7 (6-14) Blood Urea Nitrogen 22 mg/dL (7-20) H Creatinine 0.8 mg/dL (0.6-1.0) Estimated GFR (Cockcroft-Gault) 72.2 BUN/Creatinine Ratio 28 (6-20) H Glucose Level 94 mg/dL (70-99) Calcium Level 9.4 mg/dL (8.5-10.1) Total Bilirubin 0.4 mg/dL (0.2-1.0) Aspartate Amino Transferase (AST) 15 U/L (15-37) Alanine Aminotransferase (ALT) 21 U/L (14-59) Alkaline Phosphatase 80 U/L (46-116) Troponin I Quantitative < 0.017 ng/mL (0.000-0.055) ZM-Buh-U-Type Natriuretic Peptide 96 pg/mL (0-124) Total Protein 8.1 g/dL (6.4-8.2) Albumin 3.9 g/dL (3.4-5.0) Albumin/Globulin Ratio 0.9 (1.0-1.7) L Lipase 98 U/L (73-393) Laboratory Tests 06/06/19 09:30 Laboratory Tests 06/06/19 09:30 EKG EKG EKG reviewed, normal sinus rhythm, heart rate 84, no STEMI appreciated. Interpretation time 0 943[] Radiology/Procedures Radiology/Procedures [facility] [address] [place] [address] IMAGING REPORT Signed PATIENT: PIPE BARROS AACCOUNT: [id number] : 1955 LOCATION: ER AGE: 64 SEX: F EXAM STATUS: REG ER ORD. PHYSICIAN: KYLE ANDERSEN MD REASON: Shortness of breath PROCEDURE: PORTABLE CHEST 1V AP chest x-ray HISTORY: Shortness of breath. COMPARISON: Chest x-ray October 26, 2018. FINDINGS: Borderline cardiomegaly, stable. Mediastinal silhouette is normal. No pneumothorax, pulmonary opacities or pleural effusions. At the right lung base above the diaphragm somewhat obscured by overlapping telemetry lead there is a possible 8mm nodule overlapping the posterior 10th rib, this is not apparent on the prior studies. IMPRESSION: No acute cardiopulmonary process. Possible 8 mm right lower lobe pulmonary nodule. Electronically signed by: Reyna Meeks MD (06/06/2019 9:52 AM) [facility] DICTATED and SIGNED BY: REYNA MEEKS MD DATE: 06/06/19 0952 [] Course & Med Decision Making Course & Med Decision Making Pertinent Labs and Imaging studies reviewed. (See chart for details) []64-year-old female with underlying history of asthma presents to the emergency department with complaints of shortness of breath and wheeze. She states she's been out of her nebulizer treatments however does have inhaler at home. Been ongoing for 1 week however worsening today. She denies any nausea, vomiting, diarrhea, cough. Nothing makes her symptoms worse, nothing makes her symptoms better. She denies any fever. Patient received duoneb with improvement Labs/Imaging reviewed no acute process EKG without acute changes Recommend dc home, rx provided for albuterol neb, medrol dose carla Follow up with PCP as needed Return precautions provided Dragon Disclaimer Dragon Disclaimer This electronic medical record was generated, in whole or in part, using a voice recognition dictation system. Departure Departure Impression: Primary Impression: Asthma exacerbation Additional Impression: Pulmonary nodule Disposition: 01 HOME, SELF-CARE Condition: IMPROVED Referrals: IGNACIO ELIAS MD (PCP) Patient Instructions: Asthma, Adult, [id number] Additional Instructions: Recommend follow up with PCP 3 - 5 days Return to the ER with worsening symptoms, intractable pain, fever, altered mental status Tylenol/Motrin as needed for pain Take medications as prescribed Scripts Methylprednisolone (MEDROL) 4 Mg Tab.ds.pk 1 PKG PO UD for inflammation, #1 PKG Prov: KYLE ANDERSEN MD 06/06/19 Albuterol Sulfate (ALBUTEROL SULFATE NEB SOLN) 2.5 Mg/3 Ml Vial.neb 1 VIAL NEB Q6HRS PRN for SHORTNESS OF BREATH, #25 VIAL Prov: KYLE ANDERSEN MD 06/06/19 Problem Qualifiers Primary Impression: Asthma exacerbation Asthma severity: mild Asthma persistence: unspecified Qualified Codes: J45.901 - Unspecified asthma with (acute) exacerbation KYLE ANDERSEN MD Jun 06, 2019 09:42
[2019-06-06 09:45] LABS: BASO % 1 % (0-3); EOS # 0.2 x10^3/uL (0.0-0.7); EOS % 4 % (0-3); HEMATOCRIT 41.6 % (36.0-47.0); HEMOGLOBIN 14.2 g/dL (12.0-15.5); LYMPH # 1.2 x10^3/uL (1.0-4.8); LYMPH % 24 % (24-48); MEAN CORPUSCULAR HEMOGLOBIN 30 pg (25-35); MEAN CORPUSCULAR HGB CONC 34 g/dL (31-37); MEAN CORPUSCULAR VOLUME 87 fL (79-100); MONO # 0.4 x10^3/uL (0.0-1.1); MONO % 8 % (0-9); NEUT # 3.3 x10^3/uL (1.8-7.7); NEUT % 64 % (31-73); PLATELET COUNT 167 x10^3/uL (140-400); RED BLOOD COUNT 4.76 x10^6/uL (3.50-5.40); RED CELL DISTRIBUTION WIDTH 13.7 % (11.5-14.5); WHITE BLOOD COUNT 5.1 x10^3/uL (4.0-11.0)
--- NOTE | 2019-06-06 09:55 | RAD ---
AP chest x-ray HISTORY: Shortness of breath. COMPARISON: Chest x-ray October 26, 2018. FINDINGS: Borderline cardiomegaly, stable. Mediastinal silhouette is normal. No pneumothorax, pulmonary opacities or pleural effusions. At the right lung base above the diaphragm somewhat obscured by overlapping telemetry lead there is a possible 8mm nodule overlapping the posterior 10th rib, this is not apparent on the prior studies. IMPRESSION: No acute cardiopulmonary process. Possible 8 mm right lower lobe pulmonary nodule. Electronically signed by: Haider Meeks MD (06/06/2019 9:52 AM) [facility]
[2019-06-06 09:56] LABS: CALCIUM 9.4 mg/dL (8.5-10.1); CREATININE 0.8 mg/dL (0.6-1.0); GFR 72.2; POTASSIUM 3.9 mmol/L (3.5-5.1)
[2019-06-06 10:09] LABS: ALBUMIN 3.9 g/dL (3.4-5.0); ALBUMIN/GLOBULIN RATIO 0.9 (1.0-1.7); TOTAL BILIRUBIN 0.4 mg/dL (0.2-1.0); TOTAL PROTEIN 8.1 g/dL (6.4-8.2)
[2019-06-06] MEDS ORDERED: METH4TAB2 PO (10:28)
[2019-06-06] MEDS ORDERED: ALBU2.5V5 NEB (10:28)
[2019-06-06 10:52] VITALS: BP 139/83
--- NOTE | 2019-06-07 09:57 | EKG ---
[facility] [address] [place] [address] Test Date: 2019-06-06 Test Time: 09:39:26 Pat Name: PIPE BARROS Department: Room: Gender: F [employer]: : 1955 Requested By: KYLE ANDERSEN Order Number: [id number] Reading MD: Measurements Intervals [place] Rate: 84 P: 41 NM: 136 QRS: 2 QRSD: 90 T: 18 QT: 380 QTc: 452 Interpretive Statements SINUS RHYTHM LEFT ATRIAL ABNORMALITY ABNORMAL ECG RI6.01 No previous ECG available for comparison
== END 2019-06-06 11:04 | disposition home or self-care (01) ==
LOC: ER 08:51
DX: J45.901 Unspecified asthma with (acute) exacerbation (principal); R91.1 Solitary pulmonary nodule; F41.9 Anxiety disorder, unspecified; F32.9 Major depressive disorder, single episode, unspecified; K80.20 Calculus of gallbladder without cholecystitis without obstruction; M54.30 Sciatica, unspecified side; Z90.710 Acquired absence of both cervix and uterus; Z90.89 Acquired absence of other organs; Z88.0 Allergy status to penicillin
CPT/HCPCS: 36415; 71045; 80053; 83690; 83880; 84484; 85025; 93005; 94640; 99285; J7620

== ENCOUNTER 2020-05-07 08:39 | Emergency (ER) | payer BC ==
[~2020-05-07] VITALS: Ht 175.3 cm; Wt 100.0 kg
[~2020-05-07 08:39] MED LIST changes: +ALBU2.5V5 NEB
--- NOTE | 2020-05-07 09:14 | PHYS DOC ---
Past Medical History Past Medical History: Anxiety, Asthma, Depression, Gallstones, Hypertension, Other Additional Past Medical Histor: Hypoglycemia, sciatic nerve pain, miscarriage x3 Past Surgical History: Cholecystectomy, Hysterectomy, Tonsillectomy, Other Additional Past Surgical Histo: 3 D&C Smoking Status: Never Smoker Alcohol Use: Occasionally Drug Use: None General Adult EDM: Chief Complaint: MECHANICAL FALL HPI: HPI: 54-year-old female past medical history significant for asthma, anxiety and depression and LE edema (on lasix), presents to the ED with complaints of right knee pain and left anterior rib pain that started yesterday while patient excellently fell while at a storage unit. Patient states she accidentally ran into a wooden panel and bumped her left chest wall then fell on a flexed right knee on a cement floor. Denies any head injury or loss of consciousness. Is not on any anticoagulants. States pain is worsened today and is aggravated with respirations. Took tizanidine and 2 tablets of ibuprofen prior to arrival. Review of Systems: Review of Systems: Constitutional: Denies fever or chills. [] Eyes: Denies change in visual acuity. [] HENT: Denies nasal congestion or sore throat. [] Respiratory: Denies cough or shortness of breath. [] Or hemoptysis Cardiovascular: Denies syncope or chest pressure/tightness GI: Denies abdominal pain, nausea, vomiting, bloody stools or diarrhea. [] : Denies dysuria. [] Musculoskeletal: Denies midline back pain or cva ttp Integument: Denies rash. [] or skin color changes Neurologic: Denies headache, focal weakness or sensory changes. [] or midline neck pain/stiffness, no dizziness/lightheadedness Endocrine: Denies polyuria or polydipsia. [] Lymphatic: Denies swollen glands. [] Psychiatric: Denies depression or anxiety. [] Heart Score: Risk Factors: Risk Factors: DM, Current or recent (<one month) smoker, HTN, HLP, family history of CAD, obesity. Risk Scores: Score 0 - 3: 2.5% MACE over next 6 weeks - Discharge Home Score 4 - 6: 20.3% MACE over next 6 weeks - Admit for Clinical Observation Score 7 - 10: 72.7% MACE over next 6 weeks - Early Invasive Strategies Allergies: Allergies: Allergies Coded Allergies Type Severity Reaction Last Updated Verified Penicillins Allergy Intermediate Hives 04/04/18 Yes Physical Exam: PE: Constitutional: Well developed, well nourished, no acute distress, non-toxic appearance. [] HENT: Normocephalic, atraumatic, bilateral external ears normal, oropharynx moist, Eyes: PERRLA, EOMI, conjunctiva normal, no discharge. [] Neck: Normal range of motion, no tenderness, supple, no stridor. [] Cardiovascular:Heart rate regular rhythm, no murmur [] Lungs & Thorax: Bilateral breath sounds clear to auscultation [] +chest wall focal ttp over left anterior/midaxillary ribs approx 4-8, no crepitus or flail chest, speaking in full sentences Abdomen: Bowel sounds normal, soft, no tenderness, no masses, no pulsatile masses. [] no hip ttp, Skin: Warm, dry, no erythema, no rash. [] Back: No midline tenderness, no CVA tenderness. [] Extremities: No tenderness, no cyanosis, no le edema/skinny ankles, ROM intact/able to bear weight, +right knee swelling with abrasion over patella, equal LE PT pulses, no ankle ttp Neurologic: Alert and oriented X 3, normal motor function, normal sensory function, no focal deficits noted. [] Psychologic: Affect normal, judgement normal, mood normal. [] EKG: EKG: [] Radiology/Procedures: Radiology/Procedures: IMAGING REPORT Signed PATIENT: PIPE BARROS AACCOUNT: [id number] : 1955 LOCATION: ER AGE: 64 SEX: F EXAM STATUS: PRE ER ORD. PHYSICIAN: GUI MARTINEZ DO REASON: left anterior/midaxillary rib pain s/p blunt injury PROCEDURE: CT CHEST WO CONTRAST EXAM: CT Chest without IV contrast INDICATION: Reason: left anterior/midaxillary rib pain s/p blunt injury / Spl. Instructions: / History: TECHNIQUE: Multi-detector row CT images were acquired from the thoracic inlet through the upper abdomen without the use of IV contrast. Sagittal and coronal images were acquired from the transaxial data. All CT scans performed at this facility utilize dose optimization techniques as appropriate to the exam, including the following: Automated exposure control and adjustment of the mA and/or KV according to patient size (this includes techniques or standardized protocols for targeted exams where dose is indication/reason for exam). COMPARISON: None FINDINGS: The absence of IV contrast limits evaluation of soft tissue pathology. CARDIOVASCULAR: Unremarkable MEDIASTINUM & JENNI: No adenopathy or masses. LUNGS: No pulmonary infiltrate, nodule, or other focal abnormality. PLEURAL SPACE: No pleural effusions or pneumothorax. OSSEOUS & SOFT TISSUE: Unremarkable. No rib fractures identified. No chest wall hematoma or otherwise soft tissue contusion noted. ABDOMEN: The visualized portions of the upper abdomen show postcholecystectomy surgical changes and a 1 cm hypodense hepatic lesion 5, incompletely characterized on noncontrast CT but compatible with a cyst. Intraosseous hemangioma incidentally noted at L2. IMPRESSION: Unremarkable noncontrast CT of the chest. No acute traumatic findings identified. Electronically signed by: Richelle Sorensen MD (05/07/2020 9:36 AM) [id number] DICTATED and SIGNED BY: RICHELLE SORENSEN MD DATE: 05/07/20935 IMAGING REPORT Signed PATIENT: PIPE BARROS AACCOUNT: [id number] : 1955 LOCATION: ER AGE: 64 SEX: F EXAM STATUS: PRE ER ORD. PHYSICIAN: GUI MARTINEZ DO REASON: knee pain s/p blunt fall yesterday PROCEDURE: KNEE RIGHT 3V Three-view right knee radiographs 05/07/2020 CLINICAL HISTORY: Right knee pain post fall. AP, lateral and oblique digital radiographs of the right knee were obtained. No fracture or dislocation of the right knee is seen. Moderate to severe degenerative changes are seen involving all 3 compartments of the right knee. These consist of joint compartment narrowing, subchondral sclerosis and osteophyte formation. There is a moderate to large right suprapatellar joint effusion. IMPRESSION: Moderate to severe degenerative changes are seen in the right knee. No acute fracture or dislocation is seen. Electronically signed by: Rogelio Frederick MD (05/07/2020 9:23 AM) [id number] DICTATED and SIGNED BY: ROGELIO FREDERICK MD DATE: 05/07/20922 Course & Med Decision Making: Course & Med Decision Making Pertinent Labs and Imaging studies reviewed. (See chart for details) Nexus C-spine criteria are negative: There is no post midline tenderness, the patient is not intoxicated, there is a normal level of alertness, there are no focal neurologic deficits and there are no distracting injuries. Concern for accidental fall with blunt blunt chest wall and right knee injury, see can be considered although patient had no loss of consciousness, chest pain or difficulties breathing.. X-ray consistent with moderate to large right knee effusion, likely traumatic hemarthrosis, patient is able to bear weight and t olerates palpation with knee exam. CT imaging showing no obvious rib fractures, pneumothoraces or hemorrhage, suspect rib fractures. Will treat with Lidoderm patches and NSAIDs. Strict ED return precautions given for difficulties breathing, severe pain or neurologic deficits. Encouraged urgent outpatient follow-up with PMD and Ortho-may need repeat injury if does not improve with rice instructions. Life-threatening processes were considered but are low suspicion at this time, given history and physical exam. Pt was educated on all prescription medications and adverse effects. All patient's questions were answered and pt was stable at time of discharge. Life/limb-threatening differential includes but is not limited to, intracranial hemorrhage, diffuse axonal injury, spinal cord syndrome, unstable cervical fracture or SCIWORA, fractures or joint dislocations, neurovascular injuries, organ injury or laceration, pneumothorax, pneumoperitoneum, pericardial tamponade, unstable pelvic fracture, compartment syndrome, flail chest or respiratory distress, burn injury or asphyxiation I spoken with the patient and her caregivers. I explained the patient's condition, diagnoses and treatment plan based on the information available to me at this time. I have answered the patient and her caregiver's questions and addressed any concerns. The patient and her caregivers have a good understandi ng of patient's diagnosis, condition and treatment plan as can be expected at this point. Vital signs have been stable. Patient's condition is stable and appropriate for discharge from the emergency department. Patient will pursue further outpatient evaluation with primary care physician or other designated or consulting physician as outlined in the discharge instructions. The patient and/or caregivers are agreeable to this plan of care and follow-up instructions have been explained in detail. The patient and/or caregivers have received these instructions in written form and have expressed an understanding of the discharge instructions. The patient and/or caregivers are aware that any significant change of condition or worsening of symptoms should prompt immediate return to this or the closest emergency department or call to 911. Etta Disclaimer: Etta Disclaimer: This electronic medical record was generated, in whole or in part, using a voice recognition dictation system. Departure Departure Impression: Primary Impression: Fall from standing Additional Impressions: Rib pain on left side Right anterior knee pain Traumatic hemarthrosis of right knee Disposition: 01 DC HOME SELF CARE/HOMELESS Condition: STABLE Referrals: IGNACIO ELIAS MD (PCP) Patient Instructions: Osteoarthritis, RICE - Routine Care for Injuries, Rib Contusion Additional Instructions: FOLLOW UP WITH ORTHOPEDICS: If pain persists longer than 10-14 days, may need further imaging Orthopaedic Sports Medicine Orthopaedic Surgery [facility] Address: [address] [place] [address] EMERGENCY DEPARTMENT GENERAL DISCHARGE INSTRUCTIONS Thank you for coming to [facility] Emergency Department (ED) today and trusting us with you care. We trust that you had a positive experience in our Emergency Department. If you wish to speak to the department management, you may call the Director at [phone]. YOUR FOLLOW UP INSTRUCTIONS ARE FOLLOWS: 1. Do you have a private Doctor? If you do not have a private doctor, please ask for a resource list of physicians or clinics that may be able to assist you with follow up care. 2. The Emergency Physicain has interpreted your x-rays. The X-Ray specialist will also review them. If there is a change in the findings, you will be notified in 48 hours when at all possible. 3. A lab test or culture has been done, your results will be reviewed and you will be notified if you need a change in treatment. ADDITIONAL INSTRUCTIONS AND INFORMATION: 1. Your care today has been supervised by a physician who is specially trained in emergency care. Many problems require more than one evaluation for a complete diagnosis and treatment. We recommend that you schedule your follow up appointment as recommended to ensure complete treatment of you illness or injury. If you are unable to obtain follow up care and continue to have a problem, or if your condition worsens, we recommend that you return to the ED. 2. We are not able to safely determine your condition over the phone nor are we able to give sound medical advice over the phone. For these safety reasons, if you call for medical advice we will ask you to come to the ED for further evaluation. 3. If you have any questions regarding these discharge instructions please call the ED at [phone]. SAFETY INFORMATION: In the interest of safety, wellness, and injury prevention; we encourage you to wear your sealbelt, if you smoke; quite smoking, and we encourage family to use a protective helmet for bicycling and other sporting events that present an increased risk for head injury. IF YOUR SYMPTOMS WORSEN OR NEW SYMPTOMS DEVELOP, OR YOU HAVE CONCERNS ABOUT YOUR CONDITION; OR IF YOUR CONDITION WORSENS WHILE YOU ARE WAITING FOR YOUR FOLLOW UP APPOINTMENT; EITHER CONTACT YOUR PRIMARY CARE DOCTOR, THE PHYSICIAN WHOSE NAME AND NUMBER YOU WERE GIVEN, OR RETURN TO THE ED IMMEDIATELY. Scripts Lidocaine (Lido Eduardo) 1 Each Adh..patch 1 EACH TP DAILY for pain for 4 Days, #4 PATCH Prov: GUI MARTINEZ DO 05/07/20 Ibuprofen (IBUPROFEN) 600 Mg Tablet 600 MG PO PRN Q6HRS PRN for PAIN, #20 TAB take with food or milk Prov: GUI MARTINEZ DO 05/07/20 GUI MARTINEZ DO May 07, 2020 09:14
[2020-05-07] MEDS ORDERED: ACETAMINOPHEN 325 MG TABLET. PO ONE (09:15)
--- NOTE | 2020-05-07 09:27 | RAD ---
Three-view right knee radiographs 05/07/2020 CLINICAL HISTORY: Right knee pain post fall. AP, lateral and oblique digital radiographs of the right knee were obtained. No fracture or dislocation of the right knee is seen. Moderate to severe degenerative changes are seen involving all 3 compartments of the right knee. These consist of joint compartment narrowing, subchondral sclerosis and osteophyte formation. There is a moderate to large right suprapatellar joint effusion. IMPRESSION: Moderate to severe degenerative changes are seen in the right knee. No acute fracture or dislocation is seen. Electronically signed by: Rogelio Frederick MD (05/07/2020 9:23 AM) [id number]
--- NOTE | 2020-05-07 09:39 | RAD ---
EXAM: CT Chest without IV contrast INDICATION: Reason: left anterior/midaxillary rib pain s/p blunt injury / Spl. Instructions: / History: TECHNIQUE: Multi-detector row CT images were acquired from the thoracic inlet through the upper abdomen without the use of IV contrast. Sagittal and coronal images were acquired from the transaxial data. All CT scans performed at this facility utilize dose optimization techniques as appropriate to the exam, including the following: Automated exposure control and adjustment of the mA and/or KV according to patient size (this includes techniques or standardized protocols for targeted exams where dose is indication/reason for exam). COMPARISON: None FINDINGS: The absence of IV contrast limits evaluation of soft tissue pathology. CARDIOVASCULAR: Unremarkable MEDIASTINUM & JENNI: No adenopathy or masses. LUNGS: No pulmonary infiltrate, nodule, or other focal abnormality. PLEURAL SPACE: No pleural effusions or pneumothorax. OSSEOUS & SOFT TISSUE: Unremarkable. No rib fractures identified. No chest wall hematoma or otherwise soft tissue contusion noted. ABDOMEN: The visualized portions of the upper abdomen show postcholecystectomy surgical changes and a 1 cm hypodense hepatic lesion 5, incompletely characterized on noncontrast CT but compatible with a cyst. Intraosseous hemangioma incidentally noted at L2. IMPRESSION: Unremarkable noncontrast CT of the chest. No acute traumatic findings identified. Electronically signed by: Shital Sorensen MD (05/07/2020 9:36 AM) [id number]
[2020-05-07] MEDS ORDERED: LIDOCAINE (700MG/PATCH) PATCH. TD SCH (10:00)
[2020-05-07] MEDS ORDERED: IBUP-1007 PO (10:18)
[2020-05-07] MEDS ORDERED: LIDO1ADH78 TP (10:18)
[2020-05-07 10:24] VITALS: BP 124/60
[2020-05-07] MEDS ORDERED: MORPHINE SULFATE 2 MG/ML VIAL. IV PRN (10:30)
[2020-05-07] MEDS ORDERED: ONDANSETRON PF 4 MG/2 ML VIAL. IV PRN (10:30)
[2020-05-07] MEDS ORDERED: ACETAMINOPHEN 325 MG TABLET. PO PRN (10:30)
== END 2020-05-07 10:41 | disposition home or self-care (01) ==
LOC: ER 08:39
DX: G89.11 Acute pain due to trauma (principal); M25.061 Hemarthrosis, right knee; R07.81 Pleurodynia; R60.0 Localized edema; M25.561 Pain in right knee; F41.9 Anxiety disorder, unspecified; J45.909 Unspecified asthma, uncomplicated; F32.9 Major depressive disorder, single episode, unspecified; I10 Essential (primary) hypertension; Z90.710 Acquired absence of both cervix and uterus; Z90.49 Acquired absence of other specified parts of digestive tract; Z98.890 Other specified postprocedural states; Z87.442 Personal history of urinary calculi; Z88.0 Allergy status to penicillin; W18.39XA Other fall on same level, initial encounter; Y93.89 Activity, other specified; Y92.89 Other specified places as the place of occurrence of the external cause; Y99.8 Other external cause status
CPT/HCPCS: 71250; 73562; 99284

== ENCOUNTER 2020-07-26 11:07 | Emergency (ER) | payer BC, MEDICARE ==
[~2020-07-26] VITALS: Ht 175.3 cm; Wt 99.0 kg
[~2020-07-26 11:07] MED LIST changes: +IBUP-1007 PO; +LIDO1ADH78 TP
--- NOTE | 2020-07-26 12:04 | RAD ---
EXAM: Chest, single view. HISTORY: Fever. Shortness of air. COMPARISON: 05/07/2020 FINDINGS: A frontal view of the chest obtained. There is suspected bilateral lower lobe atelectasis s uperimposed on suspected chronic interstitial changes. There is no consolidation, pleural effusion or pneumothorax. There is a stable cardiac silhouette. IMPRESSION: No acute pulmonary finding. Electronically signed by: Chloé Newby MD (07/26/2020 12:02 PM) [id number]
--- NOTE | 2020-07-26 12:25 | PHYS DOC ---
Past Medical History Past Medical History: Anxiety, Asthma, Depression, Gallstones, Hypertension, Other Additional Past Medical Histor: Hypoglycemia, sciatic nerve pain, miscarriage x3 Past Surgical History: Cholecystectomy, Hysterectomy, Tonsillectomy, Other Additional Past Surgical Histo: 3 D&C Smoking Status: Never Smoker Alcohol Use: Occasionally Drug Use: None General Adult EDM: Chief Complaint: FEVER HPI: HPI: Patient is a 65 year old female who presented to ER for evaluation of cough, body ache, sore throat for 4 days. Patient said her was tested positive for COVID-19 yesterday. Patient denies any abdominal pain, no chest pain, no nausea vomiting. Review of Systems: Review of Systems: Constitutional: Denies fever or chills. [] Eyes: Denies change in visual acuity. [] HENT: Positive for nasal congestion and sore throat. Respiratory: Positive for cough, no trouble breathing [] Cardiovascular: Denies chest pain or edema. [] GI: Denies abdominal pain, nausea, vomiting, bloody stools or diarrhea. [] : Denies dysuria. [] Musculoskeletal: Denies back pain or joint pain. [] Integument: Denies rash. [] Neurologic: Denies headache, focal weakness or sensory changes. [] Endocrine: Denies polyuria or polydipsia. [] Lymphatic: Denies swollen glands. [] Psychiatric: Denies depression or anxiety. [] Heart Score: Risk Factors: Risk Factors: DM, Current or recent (<one month) smoker, HTN, HLP, family history of CAD, obesity. Risk Scores: Score 0 - 3: 2.5% MACE over next 6 weeks - Discharge Home Score 4 - 6: 20.3% MACE over next 6 weeks - Admit for Clinical Observation Score 7 - 10: 72.7% MACE over next 6 weeks - Early Invasive Strategies Allergies: Allergies: Allergies Coded Allergies Type Severity Reaction Last Updated Verified Penicillins Allergy Intermediate Hives 04/04/18 Yes Physical Exam: PE: Constitutional: Well developed, well nourished, no acute distress, non-toxic appearance. [] HENT: Normocephalic, atraumatic, bilateral external ears normal, oropharynx moist AND ERYTHEMA, no oral exudates, nose normal. [] Eyes: PERRLA, EOMI, conjunctiva normal, no discharge. [] Neck: Normal range of motion, no tenderness, supple, no stridor. [] Cardiovascular:Heart rate regular rhythm, no murmur [] Lungs & Thorax: Bilateral breath sounds clear to auscultation [] Abdomen: Bowel sounds normal, soft, no tenderness, no masses, no pulsatile masses. [] Skin: Warm, dry, no erythema, no rash. [] Back: No tenderness, no CVA tenderness. [] Extremities: No tenderness, no cyanosis, no clubbing, ROM intact, no edema. [] Neurologic: Alert and oriented X 3, normal motor function, normal sensory function, no focal deficits noted. [] Psychologic: Affect normal, judgement normal, mood normal. [] Current Patient Data: Labs: Laboratory Tests Test 07/26/20 12:30 07/26/20 12:45 White Blood Count 3.8 x10^3/uL Red Blood Count 5.18 x10^6/uL Hemoglobin 15.1 g/dL Hematocrit 44.7 % Mean Corpuscular Volume 86 fL Mean Corpuscular Hemoglobin 29 pg Mean Corpuscular Hemoglobin Concent 34 g/dL Red Cell Distribution Width 13.7 % Platelet Count 144 x10^3/uL Neutrophils (%) (Auto) 65 % Lymphocytes (%) (Auto) 23 % Monocytes (%) (Auto) 11 % Eosinophils (%) (Auto) 1 % Basophils (%) (Auto) 0 % Neutrophils # (Auto) 2.4 x10^3/uL Lymphocytes # (Auto) 0.9 x10^3/uL Monocytes # (Auto) 0.4 x10^3/uL Eosinophils # (Auto) 0.0 x10^3/uL Basophils # (Auto) 0.0 x10^3/uL Sodium Level 141 mmol/L Potassium Level 4.2 mmol/L Chloride Level 102 mmol/L Carbon Dioxide Level 28 mmol/L Anion Gap 11 Blood Urea Nitrogen 12 mg/dL Creatinine 1.0 mg/dL Estimated GFR (Cockcroft-Gault) 55.6 BUN/Creatinine Ratio 12 Glucose Level 104 mg/dL Lactic Acid Level 1.0 mmol/L Calcium Level 8.8 mg/dL Total Bilirubin 0.5 mg/dL Aspartate Amino Transf (AST/SGOT) 22 U/L Alanine Aminotransferase (ALT/SGPT) 40 U/L Alkaline Phosphatase 101 U/L Troponin I Quantitative < 0.017 ng/mL Total Protein 8.0 g/dL Albumin 3.9 g/dL Albumin/Globulin Ratio 1.0 Urine Collection Type Unknown Urine Color Yellow Urine Clarity Cloudy Urine pH 7.5 Urine Specific Adrian 1.020 Urine Protein Negative mg/dL Urine Glucose (UA) Negative mg/dL Urine Ketones (Stick) Negative mg/dL Urine Blood Negative Urine Nitrite Positive Urine Bilirubin Negative Urine Urobilinogen Dipstick 1.0 mg/dL Urine Leukocyte Esterase Moderate Urine RBC 0 /HPF Urine WBC 20-40 /HPF Urine Squamous Epithelial Cells Mod /LPF Urine Bacteria Many /HPF Urine Mucus Mod /LPF Vital Signs: Vital Signs Date Time Temp Pulse Resp B/P (MAP) Pulse Ox O2 Delivery O2 Flow Rate FiO2 07/26/20 11:31 98.7 103 18 144/87 (106) 98 Room Air 98.7 EKG: EKG: [] Radiology/Procedures: Radiology/Procedures: [][facility] [address] [place] [address] IMAGING REPORT Signed PATIENT: PIPE BARROS AACCOUNT: [id number] : 1955 LOCATION: ER AGE: 65 SEX: F EXAM STATUS: REG ER ORD. PHYSICIAN: GINA MAYS DO REASON: 08 - FEVER, SOA PROCEDURE: PORTABLE CHEST 1V EXAM: Chest, single view. HISTORY: Fever. Shortness of air. COMPARISON: 05/07/2020 FINDINGS: A frontal view of the chest obtained. There is suspected bilateral lower lobe atelectasis superimposed on suspected chronic interstitial changes. There is no consolidation, pleural effusion or pneumothorax. There is a stable cardiac silhouette. IMPRESSION: No acute pulmonary finding. Electronically signed by: Chloé Godinez MD (07/26/2020 12:02 PM) [id number] DICTATED and SIGNED BY: CHLOÉ GODINEZ MD DATE: 07/26/20 [id number] 0 Course & Med Decision Making: Course & Med Decision Making Pertinent Labs and Imaging studies reviewed. (See chart for details) Patient is a 65-year-old female who was evaluated in ER due to fever chills sore throat, back pain, cough. Chest x-ray did not show any acute problem. Her tested positive for Covid 19 infection yesterday, she is suspected to have COVID-19 infection. Her oxygen saturation is normal on room air. Patient will be discharged home. Etta Disclaimer: Etta Disclaimer: This electronic medical record was generated, in whole or in part, using a voice recognition dictation system. Departure Departure Impression: Primary Impression: Suspected 2019 novel coronavirus infection Additional Impression: UTI (urinary tract infection) Disposition: 01 DC HOME SELF CARE/HOMELESS Condition: STABLE Referrals: IGNACIO ELIAS MD (PCP) FOLLOW UP WITH YOUR DOCTOR NEEDED Patient Instructions: Urinary Tract Infection, Viral Syndrome Additional Instructions: You have been tested for or diagnosed with COVID-19. It is an infection caused by a new type of coronavirus. COVID-19 will cause cold-like or mild flu symptoms in most. It can cause more severe symptoms like problems breathing in some. There is no treatment for COVID-19. The body will clear the infection over time. Self-care will help to ease discomfort. Steps to Take: Self-Care Rest as needed. Healthy habits may help you feel better. Steps include: Choose healthy foods including fruits and vegetables. Drink water throughout the day. Get plenty of sleep each night. If you smoke, try to quit. It may ease breathing. Avoid alcohol. Keep Others Healthy The virus can spread to others. Droplets are released every time you sneeze or cough. The droplets can get into the mouth, nose, or eyes of people near you and lead to infection. To lower the chances of spreading COVID-19 to others: Stay at home until your doctor has said it is safe to leave. If you tested positive this will mean staying isolated until both of the following are true: At least 7 days have passed since the start of illness. You are free of fever for at least 72 hours without the use of medicine. During this time: - Avoid public areas, events, or transportation. Do not return to work or school until your doctor has said it is safe to do so. - Call ahead if you need to go to a medical center. Let them know you may have COVID-19. It will help them guide you where to go. They may also ask you to wear a facemask when you come to the office. - If you call for emergency medical services, let them know you may have COVID- 19. While at home: - Try to avoid close contact with others. Stay about 6 feet away. - If possible, spend most of your time in a separate room from others. - Use a face mask if you will be in close contact with others such as sharing a room or vehicle. - Have someone wipe down common surfaces in the home. Use household commissioned sales associate every day on areas like doorknobs, counters, or sinks. - Cough or sneeze into a tissue. Throw the tissue away right after use. If a tissue is not available, cough or sneeze into your elbow. - Wash your hands often. Wash them after sneezing or coughing. Use soap and water and wash for at least 20 seconds. Alcohol based hand grain cleaner and transfer operator can be used if soap and water is not available. - Do not prepare food for others. Avoid sharing personal items like forks, spoons, or toothbrushes. - Avoid close contact with pets while you are sick. There is no evidence of the virus passing to pets. This is a safety step until more is known about this virus. Isolation can be frustrating. Social interaction can help. Keep in touch with friends and family through phone and tech options. You can still interact with others in your home, just keep a safe distance of about 6 feet. Follow-up: Your doctors office will check in with you to see if there are any changes in your health. You may be asked to keep track of symptoms to share with them. They will also let you know when you are clear to be in public again. Problems to Look Out For: Contact your doctor if your recovery is not going as you expect. Get emergency care if you have problems such as: - Trouble breathing - Nonstop chest pain or pressure - Changes in awareness, confusion, or problems waking - Lips or face have bluish color - Worsening of symptoms If you think you have an emergency, call for emergency medical services right away. As taken from [employer] [facility] Sulfamethoxazole/Trimethoprim (BACTRIM DS TABLET) 1 Each Tablet 1 TAB PO BID for 7 Days, #14 TAB 0 Refills Prov: GINA MAYS DO 07/26/20 GINA MAYS DO Jul 26, 2020 12:25
[2020-07-26 12:44] LABS: BASO % 0 % (0-3); EOS % 1 % (0-3); HEMATOCRIT 44.7 % (36.0-47.0); HEMOGLOBIN 15.1 g/dL (12.0-15.5); LYMPH # 0.9 x10^3/uL (1.0-4.8); LYMPH % 23 % (24-48); MEAN CORPUSCULAR HEMOGLOBIN 29 pg (25-35); MEAN CORPUSCULAR HGB CONC 34 g/dL (31-37); MEAN CORPUSCULAR VOLUME 86 fL (79-100); MONO # 0.4 x10^3/uL (0.0-1.1); MONO % 11 % (0-9); NEUT # 2.4 x10^3/uL (1.8-7.7); NEUT % 65 % (31-73); PLATELET COUNT 144 x10^3/uL (140-400); RED BLOOD COUNT 5.18 x10^6/uL (3.50-5.40); RED CELL DISTRIBUTION WIDTH 13.7 % (11.5-14.5); WHITE BLOOD COUNT 3.8 x10^3/uL (4.0-11.0)
[2020-07-26 13:01] LABS: BILIRUBIN,URINE NEGATIVE (NEG); CLARITY,URINE CLOUDY; COLOR,URINE YELLOW; NITRITE,URINE POSITIVE (NEG); PH,URINE 7.5 (<5.0-8.0); PROTEIN,URINE NEGATIVE (NEG-TRACE)
[2020-07-26 13:07] LABS: CALCIUM 8.8 mg/dL (8.5-10.1); GFR 55.6; POTASSIUM 4.2 mmol/L (3.5-5.1)
[2020-07-26 13:11] LABS: ALBUMIN 3.9 g/dL (3.4-5.0); TOTAL BILIRUBIN 0.5 mg/dL (0.2-1.0)
[2020-07-26 13:15] LABS: BACTERIA,URINE MANY /HPF (0-FEW); RBC,URINE 0 /HPF (0-2); WBC,URINE 20-40 /HPF (0-4)
[2020-07-26 13:30] VITALS: BP 128/87
[2020-07-26] MEDS ORDERED: SULF1TAB24 PO (13:49)
[2020-07-26 14:16] LABS: INFLUENZA B PATIENT POSITIVE (NEGATIVE)
[2020-07-26 14:21] LABS: INFLUENZA A PATIENT POSITIVE (NEGATIVE)
--- NOTE | 2020-07-27 05:16 | EKG ---
[facility] [address] [place] [address] Test Date: 2020-07-26 Test Time: 11:46:16 Pat Name: PIPE BARROS Department: Room: Gender: F Call Or Contact Centre Coach: : 1955 Requested By: GINA MAYS Order Number: [id number] Reading MD: Measurements Intervals [place] Rate: 94 P: 36 NE: 122 QRS: 0 QRSD: 88 T: 34 QT: 348 QTc: 441 Interpretive Statements SINUS RHYTHM LEFT ATRIAL ABNORMALITY LEFTWARD AXIS ABNORMAL ECG RI6.01 No previous ECG available for comparison
--- NOTE | 2020-07-28 09:02 | NUR ---
IP: Attempted to contact pt concerning COVID results. No answer. Left a voicemail to return the call.
== END 2020-07-26 14:16 | disposition home or self-care (01) ==
LOC: ER 11:07
DX: U07.1 COVID-19 (principal); N39.0 Urinary tract infection, site not specified; J45.909 Unspecified asthma, uncomplicated; I10 Essential (primary) hypertension; Z90.49 Acquired absence of other specified parts of digestive tract; Z90.710 Acquired absence of both cervix and uterus; Z88.0 Allergy status to penicillin
CPT/HCPCS: 36415; 71045; 80053; 81001; 83605; 84484; 85025; 87040; 87086; 87804; 93005; 99285; C9803; U0003

== ENCOUNTER 2020-12-11 14:08 | Emergency (ER) | payer MEDICARE ==
[~2020-12-11] VITALS: Ht 170.2 cm; Wt 86.4 kg
[~2020-12-11 14:08] MED LIST changes: +SULF1TAB24 PO
--- NOTE | 2020-12-11 14:50 | RAD ---
EXAM: Left knee, 3 views. HISTORY: Fall. COMPARISON: None. FINDINGS: 3 views of the left knee are obtained. There is medial compartment joint space narrowing wi th subchondral sclerosis and marginal osteophytosis. There is mild to moderate lateral and severe pat ellofemoral compartment spurring. There is a small joint effusion. There is no acute fracture, disloc ation or subluxation. There is smooth osseous excrescence along the proximal fibular metaphysis due t o an osseous ridge or healed fracture. IMPRESSION: 1. Severe medial and patellofemoral compartment predominant osteoarthritis of the left knee with smal l joint effusion. 2. No convincing acute osseous finding. Electronically signed by: Chloé Newby MD (12/11/2020 2:48 PM) [id number]
--- NOTE | 2020-12-11 14:53 | RAD ---
EXAM: Left shoulder, 2 views; left scapula, 2 views. HISTORY: Fall. COMPARISON: None. FINDINGS: 2 views of the left scapula and shoulder are obtained. There is no acute fracture, dislocat ion or subluxation. There is a 2.0 cm osseous excrescence along the inferior medial humeral head, lik joaquín due to an osteochondroma or large marginal osteophyte. There are healed rib fractures. There is d egenerative subchondral cyst formation involving the glenoid fossa. There are 2 radiodense foreign yoselin dies overlying the superior left thorax, possibly overlying the patient. IMPRESSION: 1. No convincing acute osseous finding. 2. Benign osseous excrescence along the inferior medial humeral head due to an osteochondroma or larg e marginal osteophyte. This is superimposed on mild glenohumeral osteoarthritis. Electronically signed by: Chloé Newby MD (12/11/2020 2:50 PM) [id number]
--- NOTE | 2020-12-11 14:53 | RAD ---
EXAM: Left wrist, 3 views. HISTORY: Fall. COMPARISON: None. FINDINGS: 3 views of the left wrist are obtained. There is no acute fracture, dislocation or subluxat ion. There is severe first carpometacarpal joint space narrowing with subchondral sclerosis and lito nal spurring. There is a cyst within the scaphoid. IMPRESSION: 1. No acute osseous finding. 2. Severe first carpal metacarpal joint osteoarthritis. Electronically signed by: Chloé Newby MD (12/11/2020 2:51 PM) [id number]
--- NOTE | 2020-12-11 14:57 | RAD ---
CT HEAD AND C-SPINE WO dated 12/11/2020 2:19 PM. Comparison: None. Clinical Indication: Reason: fall / Spl. Instructions: / History: , HEAD AND NECK PAIN Technical factors: Contiguous 5 mm axial images of the head were obtained from the skullbase to the v ertex. No contrast was administered. In addition, 3 mm axial images of the cervical spine were acquir ed with thin cut coronal and sagittal reconstructions. One or more of the following individualized dose reduction techniques were utilized for this examinat ion: 1. Automated exposure control 2. Adjustment of the mA and/or kV according to patient size 3. Use of iterative reconstruction technique Findings head: Ventricles and sulci are mildly prominent for age. No midline shift or mass effect. Brain parenchyma is of normal attenuation. No hemorrhage or extra-axial collection. Posterior fossa and brain stem unr emarkable. Mild mucosal thickening of the ethmoid air cells. The visualized paranasal sinuses and mastoid air ce lls are otherwise clear. No apparent calvarial abnormality. IMPRESSION HEAD: 1. No evidence of acute intracranial hemorrhage or mass. 2. Mild atrophy for age. Findings cervical spine: Images were acquired from the skull base to T3. There is straightening of the normal cervical lordosi s, otherwise sagittal alignment is anatomic. Vertebral body heights are maintained. No prevertebral s oft tissue swelling. Posterior elements are intact. No fractures are identified. Moderate endplate hypertrophic changes throughout. Moderate disc space narrowing at C4-C5 and C5-C6 a nd C6-C7. Multilevel uncovertebral spurring and facet arthropathy. There is resultant mild central st enosis at C5-C6 and C6-C7 with moderate to severe bilateral foraminal stenosis at the C5-C6 level. Mi ld to moderate foraminal narrowing at C4-C5 and C6-C7. Visualized soft tissue structures unremarkable. There are borderline enlarged bilateral cervical elijah n lymph nodes, nonspecific. Limited images of the lung apices are grossly clear. There is some subtle patchy groundglass opacity in the right upper lobe, nonspecific IMPRESSION CERVICAL SPINE: 1. No evidence of fracture or malalignment. 2. Moderate multilevel spondylosis. Electronically signed by: Levi Costello MD (12/11/2020 2:54 PM) [id number]
--- NOTE | 2020-12-11 15:32 | PHYS DOC ---
Past Medical History Past Medical History: Anxiety, Asthma, Depression, Gallstones, Hypertension, Other Additional Past Medical Histor: Hypoglycemia, sciatic nerve pain, miscarriage x3 Past Surgical History: Cholecystectomy, Hysterectomy, Tonsillectomy, Other Additional Past Surgical Histo: 3 D&C Smoking Status: Never Smoker Alcohol Use: Occasionally Drug Use: None General Adult EDM: Chief Complaint: MECHANICAL FALL HPI: HPI: 65 yo F PMH HTN, dep/anxiety and asthma, presents to the ed with c/o left shoulder, left wrist and left knee pain after pt accidentally feel backwards on her back when a deck railing she was leaning on, gave out. Pt reports she fell backwards 3 feet, unsure if she passed out. Is not on any AC. Denies any alcohol or drug use today. No h/o ICH or prior head trauma. Reports she also has poison negrito over all four extremities and requests "prednisone." States she use to be an [employer]. Was ambulatory after falling. Does report some mild dizziness described as lightheadedness in the ED. Reports her tetanus is UTD. Pt later reported to RN left left upper scapula hurt. Review of Systems: Review of Systems: Constitutional: Denies fever or chills. [] Eyes: Denies change in visual acuity. [] HENT: Denies nasal congestion or sore throat. [] Respiratory: Denies cough or shortness of breath or hemoptysis Cardiovascular: Denies chest pain or edema. [] GI: Denies abdominal pain, nausea, vomiting, : Denies dysuria, saddle anesthesia, urine or bowel retention or incontinence Musculoskeletal: Denies midline back pain or joint pain. [] Integument: Denies diaphoresis or blistering lesions Neurologic: Denies headache, neck pain, focal weakness or sensory changes. [] Endocrine: Denies polyuria or polydipsia. [] Lymphatic: Denies swollen glands. [] Psychiatric: Denies depression or anxiety. [] Heart Score: C/O Chest Pain: No Risk Factors: Risk Factors: DM, Current or recent (<one month) smoker, HTN, HLP, family history of CAD, obesity. Risk Scores: Score 0 - 3: 2.5% MACE over next 6 weeks - Discharge Home Score 4 - 6: 20.3% MACE over next 6 weeks - Admit for Clinical Observation Score 7 - 10: 72.7% MACE over next 6 weeks - Early Invasive Strategies Allergies: Allergies: Allergies Coded Allergies Type Severity Reaction Last Updated Verified Penicillins Allergy Intermediate Hives 04/04/18 Yes Physical Exam: PE: Constitutional: Well developed, well nourished, no acute distress, non-toxic appearance. HENT: Normocephalic, atraumatic, slightly dry mucous membranes-appears as if she's been out in the sun Eyes: EOMI, conjunctiva normal, no discharge. Neck: Normal range of motion, supple, Cardiovascular: S1/2 present, regular rhythm Lungs & Thorax: Speaking in full sentences, bilateral equal chest rise, no tachypnea or increased work of breathing Abdomen: soft, no tenderness, Skin: Warm, dry, multiple small < 1/2 cm macuales with excoriations over all four extremities, 10x8 cm region of erythema and warmth over left inner thigh w/associated macular rash, no blisters or wheels/urticaria Back: No midline step offs or tenderness, no CVA tenderness. [] Extremities: No tenderness, no cyanosis, no lower extremity edema, equal radial pulses, no left wrist or left knee deformity-FROM intact, no fibular head pain/no hip or elbow pain, left shoulder appears normal but pt has painful abduction/adduction Neurologic: Alert and oriented X 3, normal motor function, normal sensory function, no focal deficits noted. [] Psychologic: Affect normal, judgement normal, mood normal. [] Current Patient Data: Vital Signs: Vital Signs Date Time Temp Pulse Resp B/P (MAP) Pulse Ox O2 Delivery O2 Flow Rate FiO2 12/11/20 14:08 98.0 94 16 194/80 (118) 95 Room Air 98.0 EKG: EKG: [] Radiology/Procedures: Radiology/Procedures: IMAGING REPORT Signed PATIENT: PIPE BARROS AACCOUNT: [id number] : 1955 LOCATION: ER AGE: 65 SEX: F EXAM STATUS: REG ER ORD. PHYSICIAN: GUI MARTINEZ DO REASON: fall PROCEDURE: CT HEAD AND CERVICAL SPINE WO CT HEAD AND C-SPINE WO dated 12/11/2020 2:19 PM. Comparison: None. Clinical Indication: Reason: fall / Spl. Instructions: / History: , HEAD AND NECK PAIN Technical factors: Contiguous 5 mm axial images of the head were obtained from the skullbase to the vertex. No contrast was administered. In addition, 3 mm axial images of the cervical spine were acquired with thin cut coronal and sagittal reconstructions. One or more of the following individualized dose reduction techniques were utilized for this examination: 1. Automated exposure control 2. Adjustment of the mA and/or kV according to patient size 3. Use of iterative reconstruction technique Findings head: Ventricles and sulci are mildly prominent for age. No midline shift or mass effect. Brain parenchyma is of normal attenuation. No hemorrhage or extra-axial collection. Posterior fossa and brain stem unremarkable. Mild mucosal thickening of the ethmoid air cells. The visualized paranasal s inuses and mastoid air cells are otherwise clear. No apparent calvarial abnormality. IMPRESSION HEAD: 1. No evidence of acute intracranial hemorrhage or mass. 2. Mild atrophy for age. Findings cervical spine: Images were acquired from the skull base to T3. There is straightening of the normal cervical lordosis, otherwise sagittal alignment is anatomic. Vertebral body heights are maintained. No prevertebral soft tissue swelling. Posterior elements are intact. No fractures are identified. Moderate endplate hypertrophic changes throughout. Moderate disc space narrowing at C4-C5 and C5-C6 and C6-C7. Multilevel uncovertebral spurring and facet arthropathy. There is resultant mild central stenosis at C5-C6 and C6-C7 with moderate to severe bilateral foraminal stenosis at the C5-C6 level. Mild to moderate foraminal narrowing at C4-C5 and C6-C7. Visualized soft tissue structures unremarkable. There are borderline enlarged bilateral cervical chain lymph nodes, nonspecific. Limited images of the lung apices are grossly clear. There is some subtle patchy groundglass opacity in the right upper lobe, nonspecific IMPRESSION CERVICAL SPINE: 1. No evidence of fracture or malalignment. 2. Moderate multilevel spondylosis. Electronically signed by: Levi Costello MD (12/11/2020 2:54 PM) [id number] DICTATED and SIGNED BY: LEVI COSTELLO MD DATE: 12/11/20 [id number] IMAGING REPORT Signed PATIENT: PIPE BARROS AACCOUNT: [id number] : 1955 LOCATION: ER AGE: 65 SEX: F EXAM STATUS: REG ER ORD. PHYSICIAN: GUI MARTINEZ DO REASON: fall PROCEDURE: KNEE LEFT 3V EXAM: Left knee, 3 views. HISTORY: Fall. COMPARISON: None. FINDINGS: 3 views of the left knee are obtained. There is medial compartment joint space narrowing with subchondral sclerosis and marginal osteophytosis. There is mild to moderate lateral and severe patellofemoral compartment spurring. There is a small joint effusion. There is no acute fracture, dislocation or subluxation. There is smooth osseous excrescence along the proximal fibular metaphysis due to an osseous ridge or healed fracture. IMPRESSION: 1. Severe medial and patellofemoral compartment predominant osteoarthritis of the left knee with small joint effusion. 2. No convincing acute osseous finding. Electronically signed by: Chloé Godinez MD (12/11/2020 2:48 PM) [id number] DICTATED and SIGNED BY: CHLOÉ GODINEZ MD DATE: 12/11/20 [id number] IMAGING REPORT Signed PATIENT: PIPE BARROS AACCOUNT: [id number] : 1955 LOCATION: ER AGE: 65 SEX: F EXAM STATUS: REG ER ORD. PHYSICIAN: GUI MARTINEZ DO REASON: fall PROCEDURE: SCAPULA LEFT EXAM: Left shoulder, 2 views; left scapula, 2 views. HISTORY: Fall. COMPARISON: None. FINDINGS: 2 views of the left scapula and shoulder are obtained. There is no acute fracture, dislocation or subluxation. There is a 2.0 cm osseous excrescence along the inferior medial humeral head, likely due to an osteochondroma or large marginal osteophyte. There are healed rib fractures. There is degenerative subchondral cyst formation involving the glenoid fossa. There are 2 radiodense foreign bodies overlying the superior left thorax, possibly overlying the patient. IMPRESSION: 1. No convincing acute osseous finding. 2. Benign osseous excrescence along the inferior medial humeral head due to an osteochondroma or large marginal osteophyte. This is superimposed on mild glenohumeral osteoarthritis. Electronically signed by: Chloé Godinez MD (12/11/2020 2:50 PM) [id number] DICTATED and SIGNED BY: CHLOÉ GODINEZ MD DATE: 12/11/20 [id number] 0 IMAGING REPORT Signed PATIENT: PIPE BARROS AACCOUNT: [id number] : 1955 LOCATION: ER AGE: 65 SEX: F EXAM STATUS: REG ER ORD. PHYSICIAN: GUI MARTINEZ DO REASON: fall PROCEDURE: WRIST 3V LEFT EXAM: Left wrist, 3 views. HISTORY: Fall. COMPARISON: None. FINDINGS: 3 views of the left wrist are obtained. There is no acute fracture, dislocation or subluxation. There is severe first carpometacarpal joint space narrowing with subchondral sclerosis and marginal spurring. There is a cyst within the scaphoid. IMPRESSION: 1. No acute osseous finding. 2. Severe first carpal metacarpal joint osteoarthritis. Electronically signed by: Chloé Godinez MD (12/11/2020 2:51 PM) [id number] DICTATED and SIGNED BY: CHLOÉ GODINEZ MD DATE: 12/11/20 [id number] 0 Course & Med Decision Making: Course & Med Decision Making Pertinent Labs and Imaging studies reviewed. (See chart for details) Concern for accidental fall w/blunt head trauma, no LOC. Pt later reports she has chronic left shoulder pain. Imaging unremarkable except for OA. Pain well tolerated. Pt ambulatory w/ no joint deformities or significant decreased ROM. Left thigh with cellulitis likely related to contact dermatitis/pruritus-patient discouraged. Will discharge home with strict ED return precautions were given for repeat head injury, nausea, vomiting, severe headache or neurologic deficits. Encouraged urgent outpatient follow-up with PMD and wound care. Life- threatening processes were considered but are low suspicion at this time, given history, physical exam and ED workup. Pt was educated on all prescription medications and adverse effects. All patient's questions were answered and pt was stable at time of discharge. Life/limb-threatening differential includes but is not limited to, intracranial hemorrhage, diffuse axonal injury, spinal cord syndrome, unstable cervical fracture or SCIWORA, fractures or joint dislocations, neurovascular injuries, organ injury or laceration, pneumothorax, pneumoperitoneum, pericardial tamponade, unstable pelvic fracture, compartment syndrome, flail chest or respiratory distress, burn injury or asphyxiation I spoken with the patient and her caregivers. I explained the patient's condition, diagnoses and treatment plan based on the information available to me at this time. I have answered the patient and her caregiver's questions and addressed any concerns. The patient and her caregivers have a good understanding of patient's diagnosis, condition and treatment plan as can be expected at this point. Vital signs have been stable. Patient's condition is stable and appropriate for discharge from the emergency department. Patient will pursue further outpatient evaluation with primary care physician or other designated or consulting physician as outlined in the discharge instructions. The patient and/or caregivers are agreeable to this plan of care and follow-up instructions have been explained in detail. The patient and/or caregivers have received these instructions in written form and have expressed an understanding of the discharge instructions. The patient and/or caregivers are aware that any significant change of condition or worsening of symptoms should prompt immediate return to this or the closest emergency department or call to [id number] Disclaimer: Etta Disclaimer: This electronic medical record was generated, in whole or in part, using a voice recognition dictation system. Departure Departure Impression: Primary Impression: Fall from standing Additional Impressions: Osteoarthritis Contact dermatitis Cellulitis of left thigh Disposition: 01 HOME / SELF CARE / HOMELESS Condition: STABLE Referrals: IGNACIO ELIAS MD (PCP) in 48 hours for wound check Patient Instructions: Cellulitis, Contact Dermatitis, Fall Prevention and Home Safety, Osteoarthritis Additional Instructions: FOLLOW UP WITH WOUND CARE: [facility] [address], [address] [place] [address] EMERGENCY DEPARTMENT GENERAL DISCHARGE INSTRUCTIONS Thank you for coming to [facility] Emergency Department (ED) today and trusting us with you care. We trust that you had a positive experience in our Emergency Department. If you wish to speak to the department management, you may call the Director at [phone]. YOUR FOLLOW UP INSTRUCTIONS ARE FOLLOWS: 1. Do you have a private Doctor? If you do not have a private doctor, please ask for a resource list of physicians or clinics that may be able to assist you with follow up care. 2. The Emergency Physicain has interpreted your x-rays. The X-Ray specialist will also review them. If there is a change in the findings, you will be notified in 48 hours when at all possible. 3. A lab test or culture has been done, your results will be reviewed and you will be notified if you need a change in treatment. ADDITIONAL INSTRUCTIONS AND INFORMATION: 1. Your care today has been supervised by a physician who is specially trained in emergency care. Many problems require more than one evaluation for a complete diagnosis and treatment. We recommend that you schedule your follow up appointment as recommended to ensure complete treatment of you illness or injury. If you are unable to obtain follow up care and continue to have a problem, or if your condition worsens, we recommend that you return to the ED. 2. We are not able to safely determine your condition over the phone nor are we able to give sound medical advice over the phone. For these safety reasons, if you call for medical advice we will ask you to come to the ED for further evaluation. 3. If you have any questions regarding these discharge instructions please call the ED at [phone]. SAFETY INFORMATION: In the interest of safety, wellness, and injury prevention; we encourage you to wear your sealbelt, if you smoke; quite smoking, and we encourage family to use a protective helmet for bicycling and other sporting events that present an increased risk for head injury. IF YOUR SYMPTOMS WORSEN OR NEW SYMPTOMS DEVELOP, OR YOU HAVE CONCERNS ABOUT YOUR CONDITION; OR IF YOUR CONDITION WORSENS WHILE YOU ARE WAITING FOR YOUR FOLLOW UP APPOINTMENT; EITHER CONTACT YOUR PRIMARY CARE DOCTOR, THE PHYSICIAN WHOSE NAME AND NUMBER YOU WERE GIVEN, OR RETURN TO THE ED IMMEDIATELY. Scripts L.acidoph & Paracasei,B.lactis (Probiotic) 1 Each Capsule 1 EACH PO DAILY for 30 Days, #30 CAP Prov: GUI MARTINEZ DO 12/11/20 Clindamycin Hcl (CLINDAMYCIN HCL) 150 Mg Capsule 2 CAP PO TID for 10 Days, #60 CAP Prov: GUI MARTINEZ DO 12/11/20 Methylprednisolone (MEDROL) 4 Mg Tab.ds.pk 1 PKG PO UD for inflammation, #1 PKG Prov: MIQUELANITAGUI Bety DO 12/11/20 MIQUELGUI HOWARD DO Dec 11, 2020 15:32
[2020-12-11 15:36] VITALS: BP 142/67
[2020-12-11] MEDS ORDERED: L.AC1CAP6 PO (16:09)
[2020-12-11] MEDS ORDERED: METH4TAB2 PO (16:09)
[2020-12-11] MEDS ORDERED: CLIN150C15 PO (16:09)
[2020-12-11] MEDS ORDERED: KETOROLAC 30 MG/ML VIAL. IM ONE (16:15)
== END 2020-12-11 16:25 | disposition home or self-care (01) ==
LOC: ER 14:08
DX: M19.012 Primary osteoarthritis, left shoulder (principal); M17.12 Unilateral primary osteoarthritis, left knee; L25.9 Unspecified contact dermatitis, unspecified cause; L03.116 Cellulitis of left lower limb; M25.532 Pain in left wrist; R42 Dizziness and giddiness; I10 Essential (primary) hypertension; F41.9 Anxiety disorder, unspecified; J45.909 Unspecified asthma, uncomplicated; Z88.0 Allergy status to penicillin; W17.89XA Other fall from one level to another, initial encounter; Y93.89 Activity, other specified; Y92.89 Other specified places as the place of occurrence of the external cause; Y99.8 Other external cause status
CPT/HCPCS: 70450; 72125; 73010; 73030; 73120; 73562; 96372; 99285; J1885

== ENCOUNTER 2021-02-08 16:38 | Emergency (ER) | payer MEDICARE ==
[~2021-02-08] VITALS: Ht 175.3 cm; Wt 90.4 kg
[~2021-02-08 16:38] MED LIST changes: +CLIN150C16 PO; -DOXY100C2 PO; +DOXY100C3 PO; +L.AC1CAP6 PO
[2021-02-08] MEDS ORDERED: IV NORMAL SALINE 1000ML BAG 1,000 ML IV ONE (19:15)
[2021-02-08] MEDS ORDERED: ONDANSETRON PF 4 MG/2 ML VIAL. IVP ONE (19:15)
--- NOTE | 2021-02-08 19:21 | PHYS DOC ---
Past Medical History Past Medical History: Anxiety, Asthma, Depression, Gallstones, Hypertension, Other Additional Past Medical Histor: Hypoglycemia, sciatic nerve pain, miscarriage x3, VIT K DEFIENCY, BLOOD DIS Past Surgical History: Cholecystectomy, Hysterectomy, Tonsillectomy, Other Additional Past Surgical Histo: 3 D&C Smoking Status: Never Smoker Alcohol Use: Occasionally Drug Use: None General Adult EDM: Chief Complaint: MULTIPLE COMPLAINTS HPI: HPI: Patient is a 65 year old female who present to ER for evaluation of nausea vomiting diarrhea and abdominal pain for a week. Her symptoms become more severe the last 2 days that why she came in for evaluation. Patient was vaccinated for COVID-19 recently. Patient denies being exposed to anybody with known Covid infection. Patient also complained of cough with clear sputum with fever and chills. Patient denies any chest pain, no trouble breathing. Review of Systems: Review of Systems: Constitutional: Positive for fever and chills Eyes: Denies change in visual acuity. [] HENT: Denies nasal congestion or sore throat. [] Respiratory: Positive for cough, no trouble breathing Cardiovascular: Denies chest pain or edema. [] GI: Positive for abdominal pain, nausea vomiting, diarrhea : Denies dysuria. [] Musculoskeletal: Denies back pain or joint pain. [] Integument: Denies rash. [] Neurologic: Denies headache, focal weakness or sensory changes. [] Endocrine: Denies polyuria or polydipsia. [] Lymphatic: Denies swollen glands. [] Psychiatric: Denies depression or anxiety. [] Heart Score: C/O Chest Pain: N/A Risk Factors: Risk Factors: DM, Current or recent (<one month) smoker, HTN, HLP, family histo ry of CAD, obesity. Risk Scores: Score 0 - 3: 2.5% MACE over next 6 weeks - Discharge Home Score 4 - 6: 20.3% MACE over next 6 weeks - Admit for Clinical Observation Score 7 - 10: 72.7% MACE over next 6 weeks - Early Invasive Strategies Current Medications: Current Medications Medications (Trade) Dose Ordered Sig/Russel Start Time Stop Time Status Last Admin Dose Admin Ondansetron HCl (Zofran) 4 mg 1X ONCE 02/08/21 19:15 02/08/21 19:16 DC Sodium Chloride 1,000 ml @ 1,000 mls/hr 1X ONCE 02/08/21 19:15 02/08/21 20:14 Allergies: Allergies: Allergies Coded Allergies Type Severity Reaction Last Updated Verified Penicillins Allergy Intermediate Hives 04/04/18 Yes Physical Exam: PE: Constitutional: Well developed, well nourished, no acute distress, non-toxic appearance. [] HENT: Normocephalic, atraumatic, bilateral external ears normal, oropharynx moist, no oral exudates, nose normal. [] Eyes: PERRLA, EOMI, conjunctiva normal, no discharge. [] Neck: Normal range of motion, no tenderness, supple, no stridor. [] Cardiovascular: Sinus tachycardia, regular rhythm, no murmur [] Lungs & Thorax: Bilateral breath sounds clear to auscultation [] Abdomen: Bowel sounds normal, soft, diffuse abdominal tenderness to palpation, no masses, no pulsatile masses. [] Skin: Warm, dry, no erythema, no rash. [] Back: No tenderness, no CVA tenderness. [] Extremities: No tenderness, no cyanosis, no clubbing, ROM intact, no edema. [] Neurologic: Alert and oriented X 3, normal motor function, normal sensory function, no focal deficits noted. [] Psychologic: Affect normal, judgement normal, mood normal. [] Current Patient Data: Labs: Laboratory Tests Test 02/08/21 19:32 02/08/21 19:35 White Blood Count 5.1 x10^3/uL Red Blood Count 5.07 x10^6/uL Hemoglobin 15.1 g/dL Hematocrit 44.0 % Mean Corpuscular Volume 87 fL Mean Corpuscular Hemoglobin 30 pg Mean Corpuscular Hemoglobin Concent 34 g/dL Red Cell Distribution Width 14.0 % Platelet Count 134 x10^3/uL Neutrophils (%) (Auto) 83 % Lymphocytes (%) (Auto) 8 % Monocytes (%) (Auto) 8 % Eosinophils (%) (Auto) 1 % Basophils (%) (Auto) 0 % Neutrophils # (Auto) 4.2 x10^3/uL Lymphocytes # (Auto) 0.4 x10^3/uL Monocytes # (Auto) 0.4 x10^3/uL Eosinophils # (Auto) 0.1 x10^3/uL Basophils # (Auto) 0.0 x10^3/uL Sodium Level 138 mmol/L Potassium Level 3.8 mmol/L Chloride Level 101 mmol/L Carbon Dioxide Level 29 mmol/L Anion Gap 8 Blood Urea Nitrogen 12 mg/dL Creatinine 0.9 mg/dL Estimated GFR (Cockcroft-Gault) 62.8 BUN/Creatinine Ratio 13 Glucose Level 122 mg/dL Calcium Level 9.3 mg/dL Magnesium Level 2.1 mg/dL Total Bilirubin 0.8 mg/dL Aspartate Amino Transf (AST/SGOT) 17 U/L Alanine Aminotransferase (ALT/SGPT) 29 U/L Alkaline Phosphatase 109 U/L Total Protein 7.8 g/dL Albumin 4.0 g/dL Albumin/Globulin Ratio 1.1 Lipase 90 U/L SARS-CoV-2 Antigen (Rapid) Negative Current Medications Medications (Trade) Dose Ordered Sig/Russel Route PRN Reason Start Time Stop Time Status Last Admin Dose Admin Sodium Chloride 1,000 ml @ 1,000 mls/hr 1X ONCE IV 02/08/21 19:15 02/08/21 20:14 DC 02/08/21 19:32 Ondansetron HCl (Zofran) 4 mg 1X ONCE IVP 02/08/21 19:15 02/08/21 19:16 DC 02/08/21 19:48 Iohexol (Omnipaque 300 Mg/ml) 75 ml 1X ONCE IV 02/08/21 21:30 02/08/21 21:31 DC 02/08/21 21:13 Info (CONTRAST GIVEN -- Rx MONITORING) 1 each PRN DAILY PRN MC SEE COMMENTS 02/08/21 21:00 02/10/21 20:59 Levofloxacin (Levaquin) 750 mg 1X ONCE PO 02/08/21 23:00 02/08/21 23:01 DC 02/08/21 23:00 Vital Signs: Vital Signs Date Time Temp Pulse Resp B/P (MAP) Pulse Ox O2 Delivery O2 Flow Rate FiO2 02/08/21 17:17 98.1 102 22 151/83 (92) 99 Room Air 98.1 EKG: EKG: [] Radiology/Procedures: Radiology/Procedures: [][facility] [address] [place], [place] [id number] IMAGING REPORT Signed PATIENT: PIPE BARROS AACCOUNT: [id number] : 1955 LOCATION: ER AGE: 65 SEX: F EXAM STATUS: REG ER ORD. PHYSICIAN: GINA MAYS DO REASON: cough PROCEDURE: CHEST AP ONLY INDICATION: Reason: cough / Spl. Instructions: / History: COMPARISON: July 26, 2020 FINDINGS: Single view of chest obtained. Cardiac silhouette is similar to prior with calcific atherosclerosis. Mild interstitial prominence bilaterally with more focal opacity at the left greater than right lung base. Degenerative changes spine IMPRESSION: * Focal opacity at the left greater than right lung base which could be secondary to atelectasis or infiltrate. Electronically signed by: Lamberto Patel MD (02/08/2021 8:37 PM) [id number] DICTATED and SIGNED BY: LAMBERTO PATEL MD DATE: 02/08/21 [id number] [facility] [address] [place] [address] IMAGING REPORT Signed PATIENT: PIPE BARROS AACCOUNT: [id number] : 1955 LOCATION: ER AGE: 65 SEX: F EXAM STATUS: REG ER ORD. PHYSICIAN: GINA MAYS DO REASON: ABDOMINAL PAIN PROCEDURE: CT ABD PELV W/ IV CONTRST ONLY CT ABDOMEN+PELVIS W History: Reason: ABDOMINAL PAIN / Spl. Instructions: [id number] [phone] / History: Technique: After the administration of intravenous contrast, CT imaging was performed of the abdomen and pelvis. Multiplanar images are reviewed. Exposure: One or more of the following individualized dose reduction techniques were utilized for this examination: 1. Automated exposure control 2. Adjustment of the mA and/or kV according to patient size 3. Use of iterative reconstruction technique. Comparison: None Findings: Lower chest: Mild dependent linear atelectasis. Mild distal esophageal wall thickening. Abdomen and pelvis: Right hepatic lobe hypodensity measures 1.0 cm, likely cyst. Prior cholecystectomy. No biliary ductal dilatation. The spleen, adrenal glands, and pancreas are unremarkable. No hydronephrosis. No renal calculus. Decompressed urinary bladder. Normal appendix. No evidence of bowel obstruction. Small retroperitoneal and mesenteric lymph nodes. Mildly enlarged left external iliac chain lymph node measures 2.3 x 1.2 cm. Mildly prominent inguinal lymph nodes. No ascites. Prior hysterectomy. Mild atheromatous plaque. Bones: Multilevel vertebral body hemangiomas. Multilevel spondylosis. Mild bilateral hip DJD. Impression: 1. Mild distal esophageal wall thickening. Correlate for esophagitis. 2. Mildly enlarged left external iliac chain lymph node with numerous small abdominal and pelvic lymph nodes, potentially reactive. Recommend further clinical evaluation and follow-up if indicated. Electronically signed by: Kyree Newman DO (02/08/2021 10:00 PM) [facility] DICTATED and SIGNED BY: KYREE NEWMAN DO DATE: 02/08/21 [id number] 0 Course & Med Decision Making: Course & Med Decision Making Pertinent Labs and Imaging studies reviewed. (See chart for details) Patient is a 65-year-old female who present to ER due to cough, abdominal pain, nausea vomiting. CT scan abdomen pelvis show some infiltration in the lower lobe of the lung, some evidence of mild case of esophagitis. Chest x-ray showed infiltration at the lower lobe as well. Patient vital signs were stable, patient will be discharged home with antibiotic to treat for pneumonia. Dragon Disclaimer: [employer] Disclaimer: This electronic medical record was generated, in whole or in part, using a voice recognition dictation system. Departure Departure Impression: Primary Impression: Pneumonia Additional Impression: Abdominal pain Disposition: HOME / SELF CARE / HOMELESS Condition: IMPROVED Referrals: IGNACIO ELIAS MD (PCP) Follow up with your doctor this week as needed Patient Instructions: Abdominal Pain, Pneumonia, Adult Additional Instructions: Thank you for visiting our Emergency Department. We appreciate you trusting us with your care. If any additional problems come up don't hesitate to return to visit us. Please follow up with your primary care provider so they can plan additional care if needed and know about the problem that you had. If symptoms worsen come back to the Emergency Department. Any concerning symptoms that start such as chest pain, shortness of air, weakness or numbness on one side of the body, running high fevers or any other concerning symptoms return to the ER. Scripts Levofloxacin (LEVOFLOXACIN) 750 Mg Tablet 1 TAB PO DAILY for 6 Days, #6 TAB Prov: GINA MAYS DO 02/08/21 GINA MAYS DO Feb 08, 2021 19:21
[2021-02-08 19:48] LABS: BASO % 0 % (0-3); EOS # 0.1 x10^3/uL (0.0-0.7); EOS % 1 % (0-3); HEMOGLOBIN 15.1 g/dL (12.0-15.5); LYMPH # 0.4 x10^3/uL (1.0-4.8); LYMPH % 8 % (24-48); MEAN CORPUSCULAR HEMOGLOBIN 30 pg (25-35); MEAN CORPUSCULAR HGB CONC 34 g/dL (31-37); MEAN CORPUSCULAR VOLUME 87 fL (79-100); MONO # 0.4 x10^3/uL (0.0-1.1); MONO % 8 % (0-9); NEUT # 4.2 x10^3/uL (1.8-7.7); NEUT % 83 % (31-73); PLATELET COUNT 134 x10^3/uL (140-400); RED BLOOD COUNT 5.07 x10^6/uL (3.50-5.40); WHITE BLOOD COUNT 5.1 x10^3/uL (4.0-11.0)
[2021-02-08 19:57] LABS: CALCIUM 9.3 mg/dL (8.5-10.1); CREATININE 0.9 mg/dL (0.6-1.0); GFR 62.8; POTASSIUM 3.8 mmol/L (3.5-5.1)
[2021-02-08 20:03] LABS: ALBUMIN/GLOBULIN RATIO 1.1 (1.0-1.7); MAGNESIUM 2.1 mg/dL (1.8-2.4); TOTAL BILIRUBIN 0.8 mg/dL (0.2-1.0); TOTAL PROTEIN 7.8 g/dL (6.4-8.2)
--- NOTE | 2021-02-08 20:39 | RAD ---
INDICATION: Reason: cough / Spl. Instructions: / History: COMPARISON: July 26, 2020 FINDINGS: Single view of chest obtained. Cardiac silhouette is similar to prior with calcific atherosclerosis. Mild interstitial prominence bilaterally with more focal opacity at the left greater than right lung base. Degenerative changes spine IMPRESSION: * Focal opacity at the left greater than right lung base which could be secondary to atelectasis or infiltrate. Electronically signed by: Juan Ashton MD (02/08/2021 8:37 PM) [id number]
[2021-02-08] MEDS ORDERED: CONTRAST GIVEN. MC PRN (21:00)
[2021-02-08] MEDS ORDERED: IOHEXOL 300 MG/ML 100ML VIAL. IV ONE (21:30)
--- NOTE | 2021-02-08 22:03 | RAD ---
CT ABDOMEN+PELVIS W History: Reason: ABDOMINAL PAIN / Spl. Instructions: [id number] 75ML [phone] / History: Technique: After the administration of intravenous contrast, CT imaging was performed of the abdomen and pelvis. Multiplanar images are reviewed. Exposure: One or more of the following individualized dose reduction techniques were utilized for thi s examination: 1. Automated exposure control 2. Adjustment of the mA and/or kV according to patient size 3. Use of iterative reconstruction technique. Comparison: None Findings: Lower chest: Mild dependent linear atelectasis. Mild distal esophageal wall thickening. Abdomen and pelvis: Right hepatic lobe hypodensity measures 1.0 cm, likely cyst. Prior cholecystectom y. No biliary ductal dilatation. The spleen, adrenal glands, and pancreas are unremarkable. No hydron ephrosis. No renal calculus. Decompressed urinary bladder. Normal appendix. No evidence of bowel obstruction. Small retroperitoneal and mesenteric lymph nodes. Mildly enlarged left external iliac chain lymph node measures 2.3 x 1.2 cm. Mildly prominent inguinal lymph nodes. No ascites. Prior hysterectomy. Mild atheromatous plaque. Bones: Multilevel vertebral body hemangiomas. Multilevel spondylosis. Mild bilateral hip DJD. Impression: 1. Mild distal esophageal wall thickening. Correlate for esophagitis. 2. Mildly enlarged left external iliac chain lymph node with numerous small abdominal and pelvic lym ph nodes, potentially reactive. Recommend further clinical evaluation and follow-up if indicated. Electronically signed by: Kyree Newman DO (02/08/2021 10:00 PM) [facility]
[2021-02-08 23:33] VITALS: BP 154/93
[2021-02-08] MEDS ORDERED: LEVO750T5 PO (23:36)
--- NOTE | 2021-02-09 17:25 | NUR ---
IP: Attempted to contact pt concerning covid results. No answer, left a voicemail to return the call.
== END 2021-02-08 23:45 | disposition home or self-care (01) ==
LOC: ER 16:38
DX: J18.9 Pneumonia, unspecified organism (principal); Z20.822 Contact with and (suspected) exposure to COVID-19; R10.84 Generalized abdominal pain; J45.909 Unspecified asthma, uncomplicated; I10 Essential (primary) hypertension; Z88.0 Allergy status to penicillin
CPT/HCPCS: 36415; 71045; 74177; 80053; 83690; 83735; 85025; 87426; 96361; 96374; 99285; J2405; J7030; Q9967; U0003; U0005

== ENCOUNTER 2021-03-31 14:27 | Emergency (ER) | payer MEDICARE ==
[~2021-03-31] VITALS: Ht 175.3 cm; Wt 99.7 kg
[~2021-03-31 14:27] MED LIST changes: +LEVO750T5 PO
[2021-03-31] MEDS ORDERED: MORPHINE SULFATE 2 MG/ML INJ. IVP ONE (16:30)
[2021-03-31] MEDS ORDERED: CONTRAST GIVEN. MC PRN (16:30)
[2021-03-31] MEDS ORDERED: IOHEXOL 300 MG/ML 100ML VIAL. IV ONE (16:30)
[2021-03-31] MEDS ORDERED: IOHEXOL 240 MG/ML 50ML VIAL. PO ONE (16:30)
--- NOTE | 2021-03-31 16:51 | PHYS DOC ---
Past Medical History Past Medical History: Anxiety, Asthma, Depression, Gallstones, Hypertension, Other Additional Past Medical Histor: Hypoglycemia, sciatic nerve pain, miscarriage x3, VIT K DEFIENCY, BLOOD DIS Past Surgical History: Cholecystectomy, Hysterectomy, Tonsillectomy, Other Additional Past Surgical Histo: 3 D&C Smoking Status: Never Smoker Alcohol Use: Occasionally Drug Use: None General Adult EDM: Chief Complaint: ABDOMINAL PAIN HPI: HPI: Patient is a 65 year old female who presents under advice of her primary care provider with right lower quadrant abdominal pain. Patient states the pain began early this morning at a 10/10 pain level. She states the pain does not radiate and has not moved, but is now a 7/10 at rest. She does have a history of constipation, denies any issues defecating at the present. She states she has had similar abdominal pain in the past, but not this bad. Her PCP instructed her to come to the emergency department, to rule out appendicitis and diverticulitis. She denies fever, chills, N/V/D, and bloody stools. Review of Systems: Review of Systems: Constitutional: See HPI Respiratory: Denies cough or shortness of breath. Cardiovascular: Denies chest pain or edema. GI: See HPI : Denies dysuria. Musculoskeletal: Denies back pain or joint pain. Integument: Denies rash. Neurologic: Denies headache, focal weakness or sensory changes. Endocrine: Denies polyuria or polydipsia. Heart Score: C/O Chest Pain: No Current Medications: Current Medications Medications (Trade) Dose Ordered Sig/Russel Start Time Stop Time Status Last Admin Dose Admin Info (CONTRAST GIVEN -- Rx MONITORING) 1 each PRN DAILY PRN 03/31/21 16:30 04/02/21 16:29 Iohexol (Omnipaque 240 Mg/ml) 50 ml 1X ONCE 03/31/21 16:30 03/31/21 16:31 DC Iohexol (Omnipaque 300 Mg/ml) 75 ml 1X ONCE 03/31/21 16:30 03/31/21 16:31 DC Morphine Sulfate (Morphine Sulfate) 2 mg 1X ONCE 03/31/21 16:30 03/31/21 16:31 DC Allergies: Allergies: Allergies Coded Allergies Type Severity Reaction Last Updated Verified Penicillins Allergy Intermediate Hives 04/04/18 Yes Physical Exam: PE: Constitutional: Well developed, well nourished, no acute distress, non-toxic appearance. Cardiovascular: Heart rate regular rhythm, no murmur. Lungs & Thorax: Bilateral breath sounds clear to auscultation. Abdomen: Protuberant abdomen, bowel sounds normoactive, central and right lower quadrant tenderness, no rebound, no guarding, no masses, no pulsatile masses. Skin: Warm, dry, no erythema, no rash. Back: No tenderness, no CVA tenderness. Extremities: No tenderness, no cyanosis, no clubbing, ROM intact, no edema. Neurologic: Alert and oriented x3, normal motor function, normal sensory function, no focal deficits noted. Current Patient Data: Vital Signs: Vital Signs Date Time Temp Pulse Resp B/P (MAP) Pulse Ox O2 Delivery O2 Flow Rate FiO2 03/31/21 15:40 98.2 79 20 182/98 (126) 98 Room Air 98.2 Radiology/Procedures: Radiology/Procedures: PROCEDURE: CT ABD PELV W/ORAL&IV CONTRAST Exam: CT of abdomen and pelvis with contrast INDICATION: Right lower quadrant pain TECHNIQUE: Sequential axial images through the abdomen and pelvis obtained following the administration of 75 mL of Omni 300 IV contrast. Sagittal and coronal reformatted images were reconstructed from the axial data and reviewed. Exposure: One or more of the following in the visualized dose reduction tech niques were utilized for this examination: 1. Automated exposure control 2. Adjustment of the MA and/or KV according to patient size 3. Use of iterative of reconstructive technique Comparisons: 02/08/2021 FINDINGS: Heart size is normal. No pericardial effusion. Visualized lung bases are clear. No pleural effusion. There is a 1.2 cm hypoattenuating cystic lesion at the right hepatic lobe series 2 image 23. Spleen, pancreas, and adrenals are unremarkable. Gallbladder is absent. No perinephric inflammation or hydronephrosis. No renal or ureteral calculi are identified. Bladder is partially distended and appears thin-walled. Uterus is absent. No abnormal adnexal mass. Large and small bowel are unremarkable. Appendix is normal. No free intra- abdominal air or fluid. No obstruction. Abdominal aorta has a normal course and caliber. Abdominal vasculature is patent. There are several prominent mildly enlarged pelvic lymph nodes noted, for example a left external iliac node which measures approximately 1.2 cm in short axis seen on series 2 image 74. No suspicious osseous lesions or acute fractures. IMPRESSION: 1. No acute processes identified within the abdomen or pelvis. 2. Persistent mildly enlarged pelvic lymphadenopathy which is nonspecific and could be reactive. Electronically signed by: Ethan Skaggs MD (03/31/2021 5:59 PM) [facility] Course & Med Decision Making: Course & Med Decision Making Pertinent Labs and Imaging studies reviewed. (See chart for details) CT of the abdomen and pelvis with oral and IV contrast will be performed to evaluate etiology of low abdominal pain. Patient was given morphine to aid in her pain. CT did not show any acute pathology needing emergent or surgical attention. In discussing patient's history of chronic constipation, patient did reveal that she attempted to pass a bowel movement this morning but was unsuccessful. I advised that she get an [id number] stool softener and effort to pass a bowel movement tonight. She will call her PCP in the morning for follow up and further workup for chronic management. Dragon Disclaimer: Dragon Disclaimer: This electronic medical record was generated, in whole or in part, using a voice recognition dictation system. Departure Departure Impression: Primary Impression: Lower abdominal pain Additional Impression: History of chronic constipation Disposition: HOME / SELF CARE / HOMELESS Condition: IMPROVED Referrals: IGNACIO ELIAS MD (PCP) Patient Instructions: Abdominal Pain, [id number] Additional Instructions: Please continue to take in plenty of fluids this evening as well as using an [id number] stool softener, as discussed. You should call your primary care doctor first thing tomorrow morning to arrange a follow-up appointment. Return to the emergency department if your pain becomes unmanageable at home. MAILE MO Mar 31, 2021 16:51
[2021-03-31 16:52] LABS: BASO % 1 % (0-3); EOS # 0.3 x10^3/uL (0.0-0.7); EOS % 5 % (0-3); HEMATOCRIT 41.5 % (36.0-47.0); HEMOGLOBIN 14.1 g/dL (12.0-15.5); LYMPH # 1.7 x10^3/uL (1.0-4.8); LYMPH % 28 % (24-48); MEAN CORPUSCULAR HEMOGLOBIN 30 pg (25-35); MEAN CORPUSCULAR HGB CONC 34 g/dL (31-37); MEAN CORPUSCULAR VOLUME 88 fL (79-100); MONO # 0.5 x10^3/uL (0.0-1.1); MONO % 7 % (0-9); NEUT # 3.6 x10^3/uL (1.8-7.7); NEUT % 59 % (31-73); PLATELET COUNT 183 x10^3/uL (140-400); RED BLOOD COUNT 4.73 x10^6/uL (3.50-5.40); RED CELL DISTRIBUTION WIDTH 13.7 % (11.5-14.5); WHITE BLOOD COUNT 6.2 x10^3/uL (4.0-11.0)
[2021-03-31 17:10] LABS: CREATININE 0.9 mg/dL (0.6-1.0); GFR 62.8; POTASSIUM 3.7 mmol/L (3.5-5.1)
[2021-03-31 18:00] VITALS: BP 189/89
--- NOTE | 2021-03-31 18:02 | RAD ---
Exam: CT of abdomen and pelvis with contrast INDICATION: Right lower quadrant pain TECHNIQUE: Sequential axial images through the abdomen and pelvis obtained following the administrati on of 75 mL of Omni 300 IV contrast. Sagittal and coronal reformatted images were reconstructed from the axial data and reviewed. Exposure: One or more of the following in the visualized dose reduction techniques were utilized for this examination: 1. Automated exposure control 2. Adjustment of the MA and/or KV according to patient size 3. Use of iterative of reconstructive technique Comparisons: 02/08/2021 FINDINGS: Heart size is normal. No pericardial effusion. Visualized lung bases are clear. No pleural effusion. There is a 1.2 cm hypoattenuating cystic lesion at the right hepatic lobe series 2 image 23. Spleen, pancreas, and adrenals are unremarkable. Gallbladder is absent. No perinephric inflammation or hydronephrosis. No renal or ureteral calculi are identified. Bladder is partially distended and appears thin-walled. Uterus is absent. No abnormal adnexal mass. Large and small bowel are unremarkable. Appendix is normal. No free intra-abdominal air or fluid. No obstruction. Abdominal aorta has a normal course and caliber. Abdominal vasculature is patent. There are several prominent mildly enlarged pelvic lymph nodes noted, for example a left external david ac node which measures approximately 1.2 cm in short axis seen on series 2 image 74. No suspicious osseous lesions or acute fractures. IMPRESSION: 1. No acute processes identified within the abdomen or pelvis. 2. Persistent mildly enlarged pelvic lymphadenopathy which is nonspecific and could be reactive. Electronically signed by: Ethan Skaggs MD (03/31/2021 5:59 PM) [facility]
== END 2021-03-31 18:55 | disposition home or self-care (01) ==
LOC: ER 14:27
DX: K59.09 Other constipation (principal); J45.909 Unspecified asthma, uncomplicated; I10 Essential (primary) hypertension; Z90.49 Acquired absence of other specified parts of digestive tract; Z90.710 Acquired absence of both cervix and uterus; Z88.0 Allergy status to penicillin
CPT/HCPCS: 36415; 74177; 80048; 85025; 96374; 99285; J2270; Q9966; Q9967